=== PATIENT | male | born 1970 | race Caucasian/White ===

== ENCOUNTER 2019-10-11 08:41 | Inpatient (IN) | payer OTHER ==
[2019-10-11 09:13] VITALS: BMI 22.9
--- NOTE | 2019-10-11 09:31 | HP ---
CIWA Score Nausea/Vomitin Muscle Tremors: 3 Anxiety: 3 Agitation: 3 Paroxysmal Sweats: 1-Minimal Palms Moist Orientation: 0-Oriented Tacttile Disturbances: 1-Very Mild Itch/Numbness Auditory Disturbances: 0-None Visual Disturbances: 0-None Headache: 2-Mild CIWA-Ar Total Score: 15 - Admission Criteria OASAS Guidelines: Admission for Medically Managed Detox: Requires at least one of the followin. CIWA greater than 12 2. Seizures within the past 24 hours 3. Delirium tremens within the past 24 hours 4. Hallucinations within the past 24 hours 5. Acute intervention needed for co occurring medical disorder 6. Acute intervention needed for co occurring psychiatric disorder 7. Severe withdrawal that cannot be handled at a lower level of care (continued vomiting, continued diarrhea, abnormal vital signs) requiring intravenous medication and/or fluids 8. Admitting History and Physical - Admission Chief Complaint: i need help to stop using alcohol,drugs History of Present Illness: this 49 years old male with alcohol dependence,also cocaine,marijuana ,pcp abused and heroin abused, homeless,first time to this facility, seen in [facility] last night schizophrenia,bipolar disorder History Source: Patient - Past Medical History [employer]: Yes: Seizure Psych: Yes: Addictions, Bipolar, Depression, Schizophrenia ENT: Yes: Other (s/p trchestomy ,,fx of mandible in 2006 fx of nose in 1997) - Past Surgical History Additional Past Surgical History: fx of mandble tracheostomy - Smoking History Smoking history: Current every day smoker Have you smoked in the past 12 months: Yes Aproximately how many cigarettes per day: 20 - Alcohol/Substance Use Hx Alcohol Use: Yes History of Substance Use: reports: Cocaine, Heroin, Marijuana - Social History Usual Living Arrangement: Yes: Other (homeless) ADL: Support Services Occupation: unemployed History of Recent Travel: No Admission ROS S - HPI Chief Complaint: i need help to stop drinking alcohol,and drug Allergies/Adverse Reactions: Allergies Allergy/AdvReac Type Severity Reaction Status Date / Time No Known Allergies Allergy Verified 10/11/19 09:00 History of Present Illness: this 49 years old male with alcohol dependence,also cocaine,marijuana,pcp abused and heroin abused, first time to this facility last admission [place] [facility] last 2019 denied syncope nicotine dependence schizophrenia,bipolar disorder no significant peroid of sobriety homeless may go to rehab Exam Limitations: No Limitations - Ebola screening Have you traveled outside of the country in the last 21 days: No Have you had contact with anyone from an Ebola affected area: No Do you have a fever: No - Review of Systems Constitutional: Loss of Appetite, Malaise, Night Sweats, Changes in sleep, Weakness, Unintentional Wgt. Loss EENT: reports: Nose Congestion Respiratory: reports: No Symptoms reported, Other (s/p tracheostomy) Cardiac: reports: Palpitations GI: reports: Diarrhea, Nausea, Vomiting, Abdominal cramping : reports: No Symptoms Reported Musculoskeletal: reports: Back Pain, Muscle Pain Integumentary: reports: Dryness Neuro: reports: Headache, Tremors Endocrine: reports: No Symptoms Reported Hematology: reports: No Symptoms Reported Psychiatric: reports: No Sypmtoms Reported, Judgement Intact, Mood/Affect Appropiate, Orientated x3, other (schizophrenia,bipolar disorder) Other Systems: Reviewed and Negative Patient History - Patient Medical History Hx Anemia: No Hx Asthma: No Hx Chronic Obstructive Pulmonary Disease (COPD): No Hx Cancer: No Hx Cardiac Disorders: No Hx Congestive Heart Failure: No Hx Hypertension: No Hx Hypercholesterolemia: No Hx Pacemaker: No HX Cerebrovascular Accident: No Hx Seizures: Yes (last 2018) Hx Dementia: No Hx Diabetes: No Hx Gastrointestinal Disorders: No Hx Liver Disease: No Hx Genitourinary Disorders: No Hx Sexually Transmitted Disorders: No Hx Renal Disease (ESRD): No Hx Thyroid Disease: No Hx Human Immunodeficiency Virus (HIV): No (last 05/28 negative) Hx Hepatitis C: No Hx Depression: Yes Hx Suicide Attempt: No Hx Bipolar Disorder: Yes (on med) Hx Schizophrenia: Yes (on med) Other Medical History: no sucidal,no homicidal - Patient Surgical History Past Surgical History: Yes Other Surgical History: traheostomy in 2006,surgery for fx mandible in 2006 - PPD History Previous Implant?: Yes Documented Results: Negative w/o proof Implanted On Prior R Admission?: No PPD to be Administered?: Yes - Smoking Cessation Smoking history: Current every day smoker Have you smoked in the past 12 months: Yes Aproximately how many cigarettes per day: 20 Cigars Per Day: 0 Hx Chewing Tobacco Use: No Initiated information on smoking cessation: Yes 'Breaking Loose' booklet given: 10/11/19 - Substance & Tx. History Hx Alcohol Use: Yes Hx Substance Use: Yes Substance Use Type: Alcohol, Cocaine, Heroin Hx Substance Use Treatment: Yes (2016 [facility]) - Substances abused Alcohol Substance route: Oral Frequency: Daily Amount used: 1 liter of EJ Age of first use: 18 Date of last use: 10/10/19 Cocaine Substance route: Inhalation Frequency: 1-2 times per week Amount used: 4 grams Age of first use: 20 Date of last use: 10/10/19 PCP Substance route: Smoking Frequency: Daily Amount used: 2-3 bags Age of first use: 24 Date of last use: 10/10/19 Crack Substance route: Smoking Frequency: 1-3 times last 30 days Amount used: $700 Age of first use: 31 Date of last use: 10/10/19 Heroin Substance route: Inhalation Frequency: Daily Amount used: 2 bags Age of first use: 31 Date of last use: 10/09/19 Admission Physical Exam BHS - Vital Signs Vital Signs: Vital Signs - 24 hr 10/11/19 09:05 Temperature 98.6 F Pulse Rate 106 H Respiratory 20 Rate Blood Pressure 156/86 - Physical General Appearance: Yes: Moderate Distress, Tremorous, Irritable, Sweating HEENTM: Yes: Normal ENT Inspection, TREY, Pharynx Normal Respiratory: Yes: Lungs Clear, Normal Breath Sounds, No Respiratory Distress Neck: Yes: Within Normal Limits, Supple, Trachea in good position, Other (scar from previous trcheostomy) Breast: Yes: Within Normal Limits Cardiology: Yes: Tachycardia Abdominal: Yes: Normal Bowel Sounds, Non Tender, Flat, Soft Genitourinary: Yes: Within Normal Limits Back: Yes: Muscle Spasm Musculoskeletal: Yes: Back pain, Muscle Pain Extremities: Yes: Tremors Neurological: Yes: features reporter II-XII NML intact, Fully Oriented, Alert, Motor Strength 5/5 Integumentary: Yes: Dry Lymphatic: Yes: Within Normal Limits - Diagnostic (1) Alcohol dependence with uncomplicated withdrawal Current Visit: Yes Status: Acute (2) Cocaine abuse Current Visit: Yes Status: Acute (3) Cannabis abuse Current Visit: Yes Status: Acute (4) PCP (phencyclidine) abuse Current Visit: Yes Status: Acute (5) Heroin abuse Current Visit: Yes Status: Acute (6) Weight loss Current Visit: Yes Status: Acute (7) Alcohol related seizure Current Visit: Yes Status: Acute (8) History of tracheostomy Current Visit: Yes Status: Acute (9) History of fracture of nose Current Visit: Yes Status: Acute (10) Fracture of mandible Current Visit: Yes Status: Acute (11) Schizophrenia Current Visit: Yes Status: Acute (12) Bipolar disorder Current Visit: Yes Status: Acute Cleared for Admission S - Detox or Rehab [facility] Level of Care: Medically Managed Detox Regimen/Protocol: Valium Breathalyzer - Breathalyzer Breathalyzer: 0 Urine Drug Screen - Test Device Lot number: [id number] Expiration date: 05/09/21 - Control Is test valid?: Yes - Results Drug screen NEGATIVE: No Urine drug screen results: THC-Marijuana, TC-Cocaine Inpatient Rehab Admission - Rehab Decision to Admit Inpatient rehab admission?: No
[2019-10-11] MEDS ORDERED: IBUPROFEN 400 MG TABLET (FP) PO PRN (09:51)
[2019-10-11] MEDS ORDERED: MENTHOL/PHENOL 1 EACH UD MM PRN (09:51)
[2019-10-11] MEDS ORDERED: MAG HYDROX/AL HYDROX/SIMETH 30 ML UNIT-DOSE CUP PO PRN (09:51)
[2019-10-11] MEDS ORDERED: BISMUTH SUBSALICYLATE 262 MG/15 ML BTL PO PRN (09:51)
[2019-10-11] MEDS ORDERED: MAGNESIUM CITRATE 300 ML BOTTLE PO PRN (09:51)
[2019-10-11] MEDS ORDERED: hydrOXYzine PAMOATE 25 MG CAPSULE (FP) PO PRN (09:51)
[2019-10-11] MEDS ORDERED: ACETAMINOPHEN 325 MG TABLET (FP) PO PRN ×2 (09:51)
[2019-10-11] MEDS ORDERED: NICOTINE POLACRILEX 2 MG GUM BUC PRN (09:51)
[2019-10-11] MEDS ORDERED: MAGNESIUM HYDROX 2400MG/30ML ORAL SUSPENSION 30 ML CUP PO PRN (09:51)
[2019-10-11] MEDS: diazePAM 5 MG TABLET PO PRN (10:40)
[2019-10-11] MEDS: NICOTINE 21 MG/24 HOURS TOPICAL PATCH TD SCH (10:40)
[2019-10-11] MEDS: PRENATAL VITAMINS W/ FOLIC ACID TABLET (FP) PO SCH (10:51)
[2019-10-11] MEDS: diazePAM 5 MG TABLET PO SCH ×2 (14:37→22:14)
[2019-10-11 15:04] LABS: HEMATOCRIT 41.8 % (35.4-49); HEMOGLOBIN 13.8 GM/dL (11.7-16.9); MCH 31.2 pg (25.7-33.7); MEAN CELL VOLUME 94.8 fl (80-96); MEAN PLT VOLUME 8.4 fl (7.5-11.1); PLATELET COUNT 296 K/MM3 (134-434); RBC 4.41 M/mm3 (4.00-5.60); RDW 13.3 % (11.9-15.9); WHITE BLOOD COUNT 6.4 K/mm3 (4.0-10.0)
--- NOTE | 2019-10-11 15:15 | EKG ---
Test Reason : Blood Pressure : / mmHG Vent. Rate : 100 BPM Atrial Rate : 100 BPM P-R Int : 118 ms QRS Dur : 098 ms QT Int : 354 ms P-R-T Axes : 071 069 057 degrees QTc Int : 456 ms NORMAL SINUS RHYTHM POSSIBLE LEFT ATRIAL ENLARGEMENT BORDERLINE ECG NO PREVIOUS ECGS AVAILABLE Confirmed by DARRELL SIMEON, TAMI ([id number]) on 10/11/2019 3:15:12 PM Referred By: Confirmed By:TAMI RAMÍREZ MD
[2019-10-11 15:20] LABS: ALBUMIN 3.2 g/dl (3.4-5.0); BILIRUBIN,TOTAL 0.6 mg/dL (0.2-1); BLOOD UREA NITROGEN 8.9 mg/dL (7-18); CALCIUM 8.2 mg/dL (8.5-10.1); CREATININE 0.8 mg/dL (0.55-1.3); TOT PROT 6.1 g/dl (6.4-8.2)
[2019-10-11] MEDS: THIAMINE HCL 100 MG TABLET (FP) PO SCH (22:15)
[2019-10-12] MEDS: diazePAM 5 MG TABLET PO SCH ×3 (05:26→22:06)
[2019-10-12] MEDS: diazePAM 5 MG TABLET PO PRN (09:29)
[2019-10-12] MEDS: PRENATAL VITAMINS W/ FOLIC ACID TABLET (FP) PO SCH (09:29)
[2019-10-12] MEDS: METHOCARBAMOL 500 MG TABLET PO PRN ×2 (09:29→22:07)
[2019-10-12] MEDS: NICOTINE 21 MG/24 HOURS TOPICAL PATCH TD SCH (09:31)
--- NOTE | 2019-10-12 10:21 | PN ---
S CIWA - CIWA Score Nausea/Vomitin-No Nausea/No Vomiting Muscle Tremors: 2 Anxiety: 3 Agitation: 2 Paroxysmal Sweats: 3 Orientation: 0-Oriented Tacttile Disturbances: 0-None Auditory Disturbances: 0-None Visual Disturbances: 0-None Headache: 2-Mild CIWA-Ar Total Score: 12 S Progress Note (SOAP) Subjective: c/o headache, sweats, anxiety, and shakes. Objective: 10/12/19 10:20 Vital Signs 10/12/19 10/12/19 10/12/19 03:30 06:30 09:16 Temperature 97.6 F 97.0 F L Pulse Rate 89 92 H Respiratory 18 18 18 Rate Blood Pressure 148/82 144/80 Laboratory Last Values WBC 6.4 K/mm3 (4.0-10.0) 10/11/19 10:00 RBC 4.41 M/mm3 (4.00-5.60) 10/11/19 10:00 Hgb 13.8 GM/dL (11.7-16.9) 10/11/19 10:00 Hct 41.8 % (35.4-49) 10/11/19 10:00 MCV 94.8 fl (80-96) 10/11/19 10:00 MCH 31.2 pg (25.7-33.7) 10/11/19 10:00 MCHC 33.0 g/dl (32.0-35.9) 10/11/19 10:00 RDW 13.3 % (11.9-15.9) 10/11/19 10:00 Plt Count 296 K/MM3 (134-434) 10/11/19 10:00 MPV 8.4 fl (7.5-11.1) 10/11/19 10:00 Sodium 144 mmol/L (136-145) 10/11/19 10:00 Potassium 4.0 mmol/L (3.5-5.1) 10/11/19 10:00 Chloride 112 mmol/L (98-107) H 10/11/19 10:00 Carbon Dioxide 26 mmol/L (21-32) 10/11/19 10:00 Anion Gap 5 MMOL/L (8-16) L 10/11/19 10:00 BUN 8.9 mg/dL (7-18) 10/11/19 10:00 Creatinine 0.8 mg/dL (0.55-1.3) 10/11/19 10:00 Est GFR (CKD-EPI)AfAm 122.43 10/11/19 10:00 Est GFR (CKD-EPI)NonAf 105.63 10/11/19 10:00 Random Glucose 123 mg/dL (74-106) H 10/11/19 10:00 Calcium 8.2 mg/dL (8.5-10.1) L 10/11/19 10:00 Total Bilirubin 0.6 mg/dL (0.2-1) 10/11/19 10:00 AST 16 U/L (15-37) 10/11/19 10:00 ALT 21 U/L (13-61) 10/11/19 10:00 Alkaline Phosphatase 101 U/L (45-117) 10/11/19 10:00 Total Protein 6.1 g/dl (6.4-8.2) L 10/11/19 10:00 Albumin 3.2 g/dl (3.4-5.0) L 10/11/19 10:00 RPR Titer Nonreactive (NONREACTIVE) 10/11/19 10:00 HIV 1&2 Antibody Screen Negative 10/11/19 10:00 HIV P24 Antigen Negative 10/11/19 10:00 Labs noted. Assessment: 10/12/19 10:20 AOX3, in no acute respiratory distress. Full ROM, ambulating in the unit. Withdrawal symptoms. Plan: continue detox. increase fluids.
--- NOTE | 2019-10-12 16:05 | CONSULT ---
[facility] Psychiatric Consult - Data Date of interview: 10/12/19 Admission source: [facility] Identifying data: Psychiatric interview cannot be conducted. Patient is asleep.
[2019-10-12] MEDS: THIAMINE HCL 100 MG TABLET (FP) PO SCH (22:06)
[2019-10-12] MEDS: MELATONIN 5 MG TABLETS PO PRN (22:07)
[2019-10-13] MEDS: diazePAM 5 MG TABLET PO SCH ×2 (05:21→18:08)
--- NOTE | 2019-10-13 10:36 | CONSULT ---
[facility] Psychiatric Consult - Data Date of interview: 10/13/19 Admission source: [facility] Identifying data: First visit to [facility] and admission to [address] [place] [address] for this 49 y/o male self-referred for detoxification treatment. ALLYSON issues : alcohol, cocaine/crack, nicotine, cannabis, heroin, phencyclidine. Patient is single, father of one, homeless, unemployed and supported on SSI benefits. Substance Abuse History: Discussed with the patient. Details in current [facility] report as follows : Smoking history: Current every day smoker. Have you smoked in the past 12 months: Yes. Aproximately how many cigarettes per day: 20. Cigars Per Day: 0. Hx Chewing Tobacco Use: No. Initiated information on smoking cessation: Yes. 'Breaking Loose' booklet given: 10/11/19. - Substance & Tx. History. Hx Alcohol Use: Yes. Hx Substance Use: Yes. Substance Use Type : Alcohol, Cocaine, Heroin. Hx Substance Use Treatment: Yes (2016 [facility]). - Substances abused. Alcohol. Substance route: Oral. Frequency: Daily. Amount used: 1 liter of EJ. Age of first use: 18. Date of last use: 10/10/19. Cocaine. Substance route: Inhalation. Frequency: 1-2 times per week. Amount used: 4 grams. Age of first use: 20. Date of last use: 10/10/19. PCP. Substance route: Smoking. Frequency: Daily. Amount used: 2-3 bags. Age of first use: 24. Date of last use: 10/10/19. Crack. Substance route: Smoking. Frequency: 1-3 times last 30 days. Amount used: $700. Age of first use: 31. Date of last use: 10/10/19. Heroin. Substance route: Inhalation. Frequency: Daily. Amount used: 2 bags. Age of first use: 31. Date of last use: 10/09/19 Medical History: Medical profile is remarkable for antecedent of withdrawal- related seizures (2018), tracheostomy and history of orthosurgery in 2006 ( fracture of mandible + nasal bones). Psychiatric History: Patient endorses a history of three psychiatric hospitalizations (1996 + 2001 + 2003) at two institutions ([facility] and [facility]). Mr Venegas is currently receiving his psychiatric OPD care, under the diagnosis of schizoaffective Disorder, at the [facility] in the [place]. His maintenance medications consist of olanzapine 5 mg/hs + zolpidem 10 mg/hs + wellbutrin XL 150 mg/day. Patient reports adequate adherence to his medications. Good historian. Denies history of suicide attempts. Physical/Sexual Abuse/Trauma History: Patient denies history of abuse. Additional Comment: Urine drug screen results: THC-Marijuana, TC-Cocaine. Noted. Mental Status Exam - Mental Status Exam Alert and Oriented to: Time, Place, Person Cognitive Function: Good Patient Appearance: Unkempt, Disheveled Mood: Nervous, Withdrawn Affect: Mood Congruent, Constricted Patient Behavior: Fatigued, Appropriate, Cooperative Speech Pattern: Clear, Appropriate Voice Loudness: Normal Thought Process: Intact, Goal Oriented Thought Disorder: Not Present Hallucinations: Denies Suicidal Ideation: Denies Homicidal Ideation: Denies Insight/Judgement: Poor Sleep: Well (asleep most of the time since admission) Appetite: Good Gait/Station: Normal Psychiatric Findings - Problem List ([place] 1, 2,3) (1) Alcohol dependence with uncomplicated withdrawal Current Visit: Yes Status: Acute (2) Opioid use disorder Current Visit: Yes Status: Chronic (3) Cannabis abuse Current Visit: Yes Status: Chronic (4) Cocaine abuse Current Visit: Yes Status: Chronic (5) PCP (phencyclidine) abuse Current Visit: Yes Status: Chronic (6) Nicotine dependence Current Visit: Yes Status: Chronic (7) Substance induced mood disorder Current Visit: Yes Status: Chronic (8) History of schizoaffective disorder Current Visit: Yes Status: Chronic Comment: As per self-report. On medications. - Initial Treatment Plan Initial Treatment Plan: Psychoeducation. Sleep hygiene. Detoxification in progress. Support. MAT services described to patient. Medications resumed at patient's request : wellbutrin XL 150 mg po daily + olanzapine 5 mg po hs. Side effects/benefits of both drugs are discussed with patient. Made aware, in particular, of risk of seizures and metabolic syndrome. Patient reports good tolerability and insists on the inclusion of these molecules in current medications regimen. Medications verified via telephone contact with pharmacist at [facility] ([phone]) : refills for both drugs were filed on 09/22. Observation.
[2019-10-13] MEDS: PRENATAL VITAMINS W/ FOLIC ACID TABLET (FP) PO SCH (10:42)
[2019-10-13] MEDS: NICOTINE 21 MG/24 HOURS TOPICAL PATCH TD SCH (10:43)
--- NOTE | 2019-10-13 11:32 | PN ---
S CIWA - CIWA Score Nausea/Vomitin-No Nausea/No Vomiting Muscle Tremors: None Anxiety: 2 Agitation: 0-Normal Activity Paroxysmal Sweats: 3 Orientation: 0-Oriented Tacttile Disturbances: 0-None Auditory Disturbances: 0-None Visual Disturbances: 0-None Headache: 0-None Present CIWA-Ar Total Score: 5 BHS Progress Note (SOAP) Subjective: c/o mild withdrawal symptoms. Objective: 10/13/19 11:29 Vital Signs 10/13/19 10/13/19 10/13/19 03:30 06:14 09:11 Temperature 98.2 F 96.9 F L Pulse Rate 100 H 94 H Respiratory 18 20 16 Rate Blood Pressure 146/86 121/85 Lab Results WBC 6.4 K/mm3 (4.0-10.0) 10/11/19 10:00 RBC 4.41 M/mm3 (4.00-5.60) 10/11/19 10:00 Hgb 13.8 GM/dL (11.7-16.9) 10/11/19 10:00 Hct 41.8 % (35.4-49) 10/11/19 10:00 MCV 94.8 fl (80-96) 10/11/19 10:00 MCHC 33.0 g/dl (32.0-35.9) 10/11/19 10:00 RDW 13.3 % (11.9-15.9) 10/11/19 10:00 Plt Count 296 K/MM3 (134-434) 10/11/19 10:00 Sodium 144 mmol/L (136-145) 10/11/19 10:00 Potassium 4.0 mmol/L (3.5-5.1) 10/11/19 10:00 Chloride 112 mmol/L (98-107) H 10/11/19 10:00 Carbon Dioxide 26 mmol/L (21-32) 10/11/19 10:00 Anion Gap 5 MMOL/L (8-16) L 10/11/19 10:00 BUN 8.9 mg/dL (7-18) 10/11/19 10:00 Creatinine 0.8 mg/dL (0.55-1.3) 10/11/19 10:00 Random Glucose 123 mg/dL (74-106) H 10/11/19 10:00 Calcium 8.2 mg/dL (8.5-10.1) L 10/11/19 10:00 Labs noted. Assessment: 10/13/19 11:30 AOX3, in no acute respiratory distress. Full ROM, ambulating in the unit. Mild Withdrawal symptoms. For d/c tomorrow. Plan: D/C in AM.
[2019-10-13] MEDS ORDERED: OLANZapine 5 MG TABLET PO SCH (22:00)
[2019-10-13] MEDS: MELATONIN 5 MG TABLETS PO PRN (22:30)
[2019-10-13] MEDS: THIAMINE HCL 100 MG TABLET (FP) PO SCH (22:30)
[2019-10-13] MEDS: diazePAM 5 MG TABLET PO PRN (22:35)
[2019-10-14] MEDS ORDERED: diazePAM 5 MG TABLET PO ONE (06:00)
[2019-10-14 06:22] VITALS: BP 134/81; PULSE 91; TEMP 97.2
[2019-10-14] MEDS: PRENATAL VITAMINS W/ FOLIC ACID TABLET (FP) PO SCH (10:03)
[2019-10-14] MEDS: NICOTINE 21 MG/24 HOURS TOPICAL PATCH TD SCH (10:03)
--- NOTE | 2019-10-14 11:43 | DS ---
[facility] Detox Discharge Summary Admission Date: 10/11/19 Discharge Date: 10/14/19 - History Present History: Alcohol Dependence Additional Comments: 49 years old male admitted on 10/11/19 for alcohol withdrawal sx management treated with valium detox regimen patient completed valium regimen tolerated well alert oriented x 3 cardiac s1s2 regular rate rhythm ekg indicates possible left atrial enlargement taking zyprexa under psychiatrist monitoring psychiatric referral while in alcohol rehab respiratory clear lung bilaterally on auscultation skin warm moist emotional assurance that psychiatrist will monitor psychotropic medications - Physical Exam Results Vital Signs: Vital Signs Temperature 97.2 F L 10/14/19 06:22 Pulse Rate 91 H 10/14/19 06:22 Respiratory Rate 18 10/14/19 06:22 Blood Pressure 134/81 10/14/19 06:22 O2 Sat by Pulse Oximetry (%) Pertinent Admission Physical Exam Findings: alcohol withdrawal Laboratory Last Values WBC 6.4 K/mm3 (4.0-10.0) 10/11/19 10:00 RBC 4.41 M/mm3 (4.00-5.60) 10/11/19 10:00 Hgb 13.8 GM/dL (11.7-16.9) 10/11/19 10:00 Hct 41.8 % (35.4-49) 10/11/19 10:00 MCV 94.8 fl (80-96) 10/11/19 10:00 MCH 31.2 pg (25.7-33.7) 10/11/19 10:00 MCHC 33.0 g/dl (32.0-35.9) 10/11/19 10:00 RDW 13.3 % (11.9-15.9) 10/11/19 10:00 Plt Count 296 K/MM3 (134-434) 10/11/19 10:00 MPV 8.4 fl (7.5-11.1) 10/11/19 10:00 Sodium 144 mmol/L (136-145) 10/11/19 10:00 Potassium 4.0 mmol/L (3.5-5.1) 10/11/19 10:00 Chloride 112 mmol/L (98-107) H 10/11/19 10:00 Carbon Dioxide 26 mmol/L (21-32) 10/11/19 10:00 Anion Gap 5 MMOL/L (8-16) L 10/11/19 10:00 BUN 8.9 mg/dL (7-18) 10/11/19 10:00 Creatinine 0.8 mg/dL (0.55-1.3) 10/11/19 10:00 Est GFR (CKD-EPI)AfAm 122.43 10/11/19 10:00 Est GFR (CKD-EPI)NonAf 105.63 10/11/19 10:00 Random Glucose 123 mg/dL (74-106) H 10/11/19 10:00 Calcium 8.2 mg/dL (8.5-10.1) L 10/11/19 10:00 Total Bilirubin 0.6 mg/dL (0.2-1) 10/11/19 10:00 AST 16 U/L (15-37) 10/11/19 10:00 ALT 21 U/L (13-61) 10/11/19 10:00 Alkaline Phosphatase 101 U/L (45-117) 10/11/19 10:00 Total Protein 6.1 g/dl (6.4-8.2) L 10/11/19 10:00 Albumin 3.2 g/dl (3.4-5.0) L 10/11/19 10:00 RPR Titer Nonreactive (NONREACTIVE) 10/11/19 10:00 HIV 1&2 Antibody Screen Negative 10/11/19 10:00 HIV P24 Antigen Negative 10/11/19 10:00 lab noted - Treatment Hospital Course: Detox Protocol Followed, Detoxed Safely, Responded well, Discharged Condition Good, Rehab Referral Accepted Patient has Accepted [facility] - Medication Discharge Medications: Ambulatory Orders Bupropion HCl [Wellbutrin Sr] 150 mg PO DAILY 10/11/19 Clonazepam [Klonopin] 1 mg PO BID 10/11/19 Cyclobenzaprine HCl 10 mg PO BID PRN 10/11/19 Ibuprofen [Motrin -] 600 mg PO PRN PRN 10/11/19 Olanzapine 15 mg PO HS 10/11/19 Zolpidem Tartrate [Ambien] 10 mg PO HS 10/11/19 - Diagnosis (1) Alcohol dependence with uncomplicated withdrawal Status: Acute (2) Weight loss Status: Acute (3) Nicotine dependence Status: Acute Qualifiers: Nicotine product type: cigarettes Substance use status: in withdrawal Qualified Code(s): F17.213 - Nicotine dependence, cigarettes, with withdrawal (4) Substance induced mood disorder Status: Suspected - AMA Did Patient Leave Against Medical Advice: No CIWA Score - CIWA Score Nausea/Vomitin-No Nausea/No Vomiting Muscle Tremors: None Anxiety: 1-Mildly Anxious Agitation: 0-Normal Activity Paroxysmal Sweats: 2 Orientation: 0-Oriented Tacttile Disturbances: 0-None Auditory Disturbances: 0-None Visual Disturbances: 0-None Headache: 0-None Present CIWA-Ar Total Score: 3
== END 2019-10-14 10:05 | disposition other institution (70) | DRG 773 ==
LOC: YASAS 08:41 → Y3N 09:41
PROVIDERS: ADMIT Allergy & Immunology; ATTEND Allergy & Immunology
PROC: HZ2ZZZZ Detoxification Services for Substance Abuse Treatment (ICD-10-PCS; principal; 2019-10-11)
DX: F10.230 Alcohol dependence with withdrawal, uncomplicated (principal); F11.10 Opioid abuse, uncomplicated; F14.10 Cocaine abuse, uncomplicated; F12.10 Cannabis abuse, uncomplicated; F16.10 Hallucinogen abuse, uncomplicated; F17.213 Nicotine dependence, cigarettes, with withdrawal; F19.24 Other psychoactive substance dependence with psychoactive substance-induced mood disorder; F31.9 Bipolar disorder, unspecified; F20.9 Schizophrenia, unspecified; R63.4 Abnormal weight loss; R00.0 Tachycardia, unspecified; Z86.69 Personal history of other diseases of the nervous system and sense organs; Z59.0 Homelessness
CPT/HCPCS: 36415; 80053; 85027; 86593; 87389; 93005; 93010

== ENCOUNTER 2019-10-14 10:40 | Inpatient (IN) | payer OTHER ==
[2019-10-14 11:02] VITALS: BP 146/86; PULSE 118; TEMP 98
[2019-10-14] MEDS ORDERED: MAG HYDROX/AL HYDROX/SIMETH 30 ML UNIT-DOSE CUP PO PRN (11:36)
[2019-10-14] MEDS ORDERED: MENTHOL/PHENOL 1 EACH UD MM PRN (11:36)
[2019-10-14] MEDS ORDERED: LOPERAMIDE HCL 2 MG CAPSULE PO PRN (11:36)
[2019-10-14] MEDS ORDERED: IBUPROFEN 400 MG TABLET (FP) PO PRN (11:36)
[2019-10-14] MEDS ORDERED: MAGNESIUM CITRATE 300 ML BOTTLE PO PRN (11:36)
[2019-10-14] MEDS ORDERED: guaiFENesin 200 MG/10 ML 10 ML UNIT-DOSE CUPS PO PRN (11:36)
[2019-10-14] MEDS ORDERED: P-EPHED 60MG/TRIPROLIDI 2.5MG TABLET PO PRN (11:36)
[2019-10-14] MEDS ORDERED: NICOTINE POLACRILEX 2 MG GUM BUC PRN (11:36)
[2019-10-14] MEDS ORDERED: MAGNESIUM HYDROX 2400MG/30ML ORAL SUSPENSION 30 ML CUP PO PRN (11:36)
[2019-10-14] MEDS ORDERED: ACETAMINOPHEN 325 MG TABLET (FP) PO PRN (11:36)
--- NOTE | 2019-10-14 11:36 | HP ---
JUAN SIMEON Rehab Assess/Revision - Admission History Admitted to Rehab from: [facility] Date of Admission to Rehab: 10/14/19 - Vital signs Vital Signs: Vital Signs Period Temp Pulse Resp BP Sys/Brenner Pulse Ox Last 24 Hr 98.0 F 118 18 146/86 - Findings Detox History & Physical reviewed: Yes Concur with findings: Yes Comments/Additional Findings: tranferred from detox to rehab admission as per protocol Inpatient Rehab Admission - Rehab Decision to Admit Inpatient rehab admission?: Yes - Initial Determination Are CD services needed?: Yes Free of communicable disease: Yes Not in need of hospitalization: Yes - Rehab Admission Criteria Previous failed treatment: Yes Poor recovery environment: Yes Comorbidities: Yes Lacks judgement: Yes Patient is meeting Inpatient Rehab admission criteria:: Yes
[2019-10-14] MEDS ORDERED: hydrOXYzine PAMOATE 50 MG CAPSULE (FP) PO PRN (14:23)
--- NOTE | 2019-10-14 14:26 | CONSULT ---
[facility] Psychiatric Consult - Data Date of interview: 10/14/19 Admission source: [facility] Identifying data: Patient is a 49 y/o male, Single, father of one, unemployed, homeless, and supported by SSI Benefits. Patient admitted to for acohol, cocaine/crack, nicotine, cannabis, heroin, and phencyclidine dependence. Substance Abuse History: Substance & Tx. History. Hx Alcohol Use: Yes. Hx Substance Use: Yes. Substance Use Type: Alcohol, Cocaine, Heroin. Hx Substance Use Treatment: Yes (2016[facility]). - Substances abused. Alcohol. Substance route: Oral. Frequency: Daily. Amount used: 1 liter of EJ. Age of first use: 18. Date of last use: 10/10/19. Cocaine. Substance route: Inhalation. Frequency: 1-2 times per week. Amount used: 4 grams. Age of first use: 20. Date of last use: 10/10/19. PCP. Substance route: Smoking. Frequency: Daily. Amount used: 2-3 bags. Age of first use: 24. Date of last use: 10/10/19. Crack. Substance route: Smoking. Frequency: 1- 3 times last 30 days. Amount used: $700. Age of first use: 31. Date of last use: 10/10/19. Heroin. Substance route: Inhalation. Frequency: Daily. Amount used: 2 bags. Age of first use: 31. Date of last use: 10/09/19 Medical History: Medical profile is remarkable for antecedent of withdrawal- related seizures (2019), tracheostomy and history of orthosurgery in 2007 ( fracture of mandible + nasal bones). Psychiatric History: Patient seen by Dr. Hernandez in detox. History remains consistent. Patient reports a history of multiple psychiatric hospitalizations in the early 1999's at [facility] and [facility] secondary to auditory hallucinations. Diagnosis of Schizoaffective disorder. Mr Venegas is currently receiving his psychiatric OPD care at the [facility] and is prescribed Wellbutrin 150mg XL + Zyprexa 5mg + Ambien 10mg HS. Patient denies history of suicide attempt. As per nursing staff patient has appeared irritable on the unit but was in good control and did not appear irritable while speaking to commercial insurance underwriter. At present patient denies auditory/visual hallucinations, suicidal/homicidal ideation. Physical/Sexual Abuse/Trauma History: denies. Mental Status Exam - Mental Status Exam Alert and Oriented to: Time, Place, Person Cognitive Function: Good Patient Appearance: Well Groomed Mood: Withdrawn (In bed.) Affect: Mood Congruent Patient Behavior: Fatigued, Cooperative Speech Pattern: Clear Voice Loudness: Normal Thought Process: Goal Oriented Thought Disorder: Not Present Hallucinations: Denies Suicidal Ideation: Denies Homicidal Ideation: Denies Insight/Judgement: Poor Sleep: Fair Appetite: Fair Muscle strength/Tone: Normal Gait/Station: Other (Did not observe gait.) Psychiatric Findings - Problem List ([place] 1, 2,3) (1) Alcohol use disorder Status: Acute (2) Opioid use disorder Status: Chronic (3) PCP (phencyclidine) abuse Status: Chronic (4) Substance induced mood disorder Status: Acute (5) Schizoaffective disorder Status: Acute (6) Cannabis abuse Status: Chronic (7) Cocaine abuse Status: Chronic - Initial Treatment Plan Initial Treatment Plan: Psychoeducation provided. Rehab in progress. Will continue Wellbutrin 150mg daily + Zyprexa 5mg HS. Will order Vistaril 50mg Q4H for irritability. Benefits and side effects discussed. Verbal consent given.
--- NOTE | 2019-10-14 16:48 | PN ---
[facility] Progress Note Note: patient did not want to complete treatment state he feel much better,would would like to go back to alf,, all attempts to convince patient to stay with no avail,high risk of relapsing explained,nd understood,patient seen by counselor, signed release ama,no suicidal,no homicidal,left the unit in good and stable, condition
--- NOTE | 2019-10-14 16:58 | DS ---
[facility] Rehab Discharge Summary - [facility] Rehab Discharge Summary Admission Date: 10/14/19 Discharge Date: 10/14/19 - History Present History: Alcohol dependence, Cannabis dependence, PCP dependence Pertinent Past History: bipolar disorder - Discharge Physical Exam Vital Signs: Vital Signs Temperature 98.0 F 10/14/19 11:01 Pulse Rate 118 H 10/14/19 11:01 Respiratory Rate 18 10/14/19 11:01 Blood Pressure 146/86 10/14/19 11:01 O2 Sat by Pulse Oximetry (%) - Treatment Discharge Condition: Discharge condition good Hospital Course: patient did not want to complete treatment,signed release ama,high risk of relapsing explained,patient understood,all attempts to convince patient to stay with no avail,patient signed release ama,left the unit in stable condition, stated he will see his psychiatric for medications, seen by counselor,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,advise to call 911 if not feeling well - Medication Discharge Medications: Ambulatory Orders Bupropion HCl [Wellbutrin Sr] 150 mg PO DAILY 10/11/19 Clonazepam [Klonopin] 1 mg PO BID 10/11/19 Cyclobenzaprine HCl 10 mg PO BID PRN 10/11/19 Ibuprofen [Motrin -] 600 mg PO PRN PRN 10/11/19 Olanzapine 15 mg PO HS 10/11/19 Zolpidem Tartrate [Ambien] 10 mg PO HS 10/11/19 - Discharge Instructions Diet, activity, other medical instructions: Diet: Activity: Other medical instructions: - Diagnosis (1) Alcohol use disorder Current Visit: Yes Status: Acute (2) Cannabis abuse Current Visit: Yes Status: Chronic (3) Cocaine abuse Current Visit: Yes Status: Chronic (4) Opioid use disorder Current Visit: Yes Status: Chronic (5) PCP (phencyclidine) abuse Current Visit: Yes Status: Chronic (6) History of tracheostomy Current Visit: No Status: Acute (7) Nicotine dependence Current Visit: No Status: Acute Qualifiers: Nicotine product type: cigarettes Substance use status: in withdrawal Qualified Code(s): F17.213 - Nicotine dependence, cigarettes, with withdrawal (8) History of schizoaffective disorder Current Visit: No Status: Chronic - AMA Did Patient Leave Against Medical Advice: Yes
[2019-10-14] MEDS ORDERED: OLANZapine 5 MG TABLET PO SCH (22:00)
[2019-10-14] MEDS ORDERED: THIAMINE HCL 100 MG TABLET (FP) PO SCH (22:00)
[2019-10-14] MEDS ORDERED: MELATONIN 5 MG TABLETS PO PRN (22:00)
[2019-10-15] MEDS ORDERED: PRENATAL VITAMINS W/ FOLIC ACID TABLET (FP) PO SCH (10:00)
[2019-10-15] MEDS ORDERED: NICOTINE 21 MG/24 HOURS TOPICAL PATCH TD SCH (10:00)
== END 2019-10-14 17:10 | disposition left against medical advice (07) | DRG 770 ==
LOC: YASAS 10:40 → Y3W 10:42
PROVIDERS: ADMIT Neuromusculoskeletal Medicine & OMM; ATTEND Neuromusculoskeletal Medicine & OMM
PROC: HZ42ZZZ Group Counseling for Substance Abuse Treatment, Cognitive-Behavioral (ICD-10-PCS; principal; 2019-10-14)
DX: F10.20 Alcohol dependence, uncomplicated (principal); F11.10 Opioid abuse, uncomplicated; F14.10 Cocaine abuse, uncomplicated; F16.10 Hallucinogen abuse, uncomplicated; F12.10 Cannabis abuse, uncomplicated; F17.213 Nicotine dependence, cigarettes, with withdrawal; F19.24 Other psychoactive substance dependence with psychoactive substance-induced mood disorder; F31.9 Bipolar disorder, unspecified; F20.9 Schizophrenia, unspecified; R63.4 Abnormal weight loss; R00.0 Tachycardia, unspecified; Z86.69 Personal history of other diseases of the nervous system and sense organs; Z59.0 Homelessness

== ENCOUNTER 2019-11-20 16:13 | Inpatient (IN) | payer OTHER ==
[2019-11-20 18:21] VITALS: BMI 22.8
--- NOTE | 2019-11-20 21:30 | HP ---
CIWA Score Nausea/Vomitin-No Nausea/No Vomiting Muscle Tremors: 2 Anxiety: 4-Mod. Anxious/Guarded Agitation: 1-Slight > Activity Paroxysmal Sweats: 3 (Increased facial moisture) Orientation: 0-Oriented Tacttile Disturbances: 0-None Auditory Disturbances: 0-None Visual Disturbances: 0-None Headache: 0-None Present CIWA-Ar Total Score: 10 - Admission Criteria OASAS Guidelines: Admission for Medically Managed Detox: Requires at least one of the followin. CIWA greater than 12 2. Seizures within the past 24 hours 3. Delirium tremens within the past 24 hours 4. Hallucinations within the past 24 hours 5. Acute intervention needed for co occurring medical disorder 6. Acute intervention needed for co occurring psychiatric disorder 7. Severe withdrawal that cannot be handled at a lower level of care (continued vomiting, continued diarrhea, abnormal vital signs) requiring intravenous medication and/or fluids 8. Patient presents the following: Acute intervention needed for co-occurring med or psych disorder (Patient w/ schizophrenia) Admission Criteria Met: Admission criteria met Admitting History and Physical - Past Medical History CHAPLAINCY: Yes: Seizure Psych: Yes: Addictions, Bipolar, Depression, Schizophrenia ENT: Yes: Other (s/p trchestomy ,,fx of mandible in 2006 fx of nose in 1997) - Smoking History Smoking history: Current every day smoker Have you smoked in the past 12 months: Yes Aproximately how many cigarettes per day: 20 - Alcohol/Substance Use Hx Alcohol Use: Yes History of Substance Use: reports: Cocaine, Heroin, Marijuana - Social History ADL: Support Services Occupation: unemployed History of Recent Travel: No Admission ROS [facility] Chief Complaint: I'm here for detox. I want to stop drinking" Allergies/Adverse Reactions: Allergies Allergy/AdvReac Type Severity Reaction Status Date / Time No Known Allergies Allergy Verified 10/11/19 09:00 History of Present Illness: 49 yo presents w/ alcohol withdrawal seeking detox. Patient does not remember he was here in October 2019. Part of patient's hx does not coincide w/ last admission. Physical assessment is the same (i.e. old trache opening) Denies seizures, blackouts, overdoses. UTox: + THC/TC FROYLAN: 0.0 Alcohol use began at age 20. Currently drinks 2 -6 packs 22 oz beers daily. Last drink about 5 a.m. today. Marijuana use began at age 18. Currently uses $5 bag/day. Cocaine use began at age 26. Sniffs 1 gm daily, last used 2 days ago. PCP use began at age 26. States uses 1 bag/day. Denies nicotine use. Denies opiate use. PMHx: Chronic low back pain. 10/11/2019 EKG reviewed. 10/11/2019 RPR reviewed. MHHx: Schizophrenia. Zyprexa 5 mg Po daily and Wellbutrin Po daily - states compliant w/ meds. . Kojo hallucinations when non compliant w/ meds. Denies thoughts of harming self or others. SHx: Retirement. Unemployed. Denies legal issues. Patient Name: Benitez Venegas Date: 1970 Address: [address] [place] [address] Sex: Male Rx Written Rx Dispensed Drug Quantity Days Supply Prescriber Name 10/26/2019 10/26/2019 endocet 10-325 mg tablet 90 30 Deanne Pugh 10/22/2019 10/22/2019 zolpidem tartrate 10 mg tablet 30 30 Vik Lozano NP 09/26/2019 09/26/2019 endocet 10-325 mg tablet 90 30 Ramu Beach K 08/15/2019 09/18/2019 zolpidem tartrate 10 mg tablet 30 30 Sam Manzanares 08/27/2019 08/27/2019 endocet 10-325 mg tablet 90 30 Eugene Salas MD 08/23/2019 08/23/2019 acetaminophen-cod #3 tablet 20 7 Jaime England 08/15/2019 08/22/2019 zolpidem tartrate 10 mg tablet 30 30 Sam Manzanares 07/27/2019 07/27/2019 endocet 10-325 mg tablet 90 30 Eugene Salas MD 06/20/2019 07/24/2019 zolpidem tartrate 10 mg tablet 30 30 Sam Manzanares 06/28/2019 06/28/2019 endocet 10-325 mg tablet 75 30 Michael Fair 06/20/2019 06/23/2019 zolpidem tartrate 10 mg tablet 30 30 Sam Manzanares 04/23/2019 05/28/2019 zolpidem tartrate 10 mg tablet 30 30 Robert Linares 05/28/2019 05/28/2019 endocet 10-325 mg tablet 90 30 Mosheyev, Michael 04/27/2019 04/27/2019 endocet 10-325 mg tablet 90 30 Amando Stanford () 04/23/2019 04/24/2019 zolpidem tartrate 10 mg tablet 30 30 Cornell Linareseda 03/28/2019 03/28/2019 endocet 10-325 mg tablet 90 30 Eugene Salas MD 02/23/2019 03/26/2019 zolpidem tartrate 10 mg tablet 30 30 Kwapong, Jack 02/23/2019 02/24/2019 zolpidem tartrate 10 mg tablet 30 30 Kwapong, Jack 02/22/2019 02/22/2019 endocet 10-325 mg tablet 90 30 Manjula, Michael Patient Name: Benitez Venegas Date: 1970 Address: [address] [place] [address] Sex: Male Rx Written Rx Dispensed Drug Quantity Days Supply Prescriber Name 12/27/2018 01/22/2019 zolpidem tartrate 10 mg tablet 30 30 Manzanares, Benefita 01/22/2019 01/22/2019 endocet 10-325 mg tablet 90 30 Jean Pierre Brandon, P 12/27/2018 01/01/2019 zolpidem tartrate 10 mg tablet 30 30 Manzanares, Benefita 12/22/2018 12/22/2018 endocet 10-325 mg tablet 90 30 Tonya Brain T (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 Chews aand swallows ok.) Respiratory: reports: No Symptoms reported Cardiac: reports: No Symptoms Reported GI: reports: No Symptoms Reported : reports: No Symptoms Reported Musculoskeletal: reports: Back Pain (Chronic sharp low back pain. "0". Pain triggered by walking, stair climbing.), Joint Stiffness ((R) middle finger paralyzed r/t tendon injury) Integumentary: reports: No Symptoms Reported Neuro: reports: Tremors Endocrine: reports: Increased Thirst Hematology: reports: No Symptoms Reported Psychiatric: reports: Judgement Intact, Orientated x3, Anxious Patient History - Patient Medical History Hx Anemia: No Hx Asthma: No Hx Chronic Obstructive Pulmonary Disease (COPD): No Hx Cancer: No Hx Cardiac Disorders: No Hx Congestive Heart Failure: No Hx Hypertension: No Hx Hypercholesterolemia: No Hx Pacemaker: No HX Cerebrovascular Accident: No Hx Seizures: Yes (seizure r/t alcohol last episode last year) Hx Dementia: No Hx Diabetes: No Hx Gastrointestinal Disorders: No Hx Liver Disease: No Hx Genitourinary Disorders: No Hx Sexually Transmitted Disorders: No Hx Renal Disease (ESRD): No Hx Thyroid Disease: No Hx Human Immunodeficiency Virus (HIV): No (last 05/28 negative) Hx Hepatitis C: No Hx Depression: Yes Hx Suicide Attempt: No Hx Bipolar Disorder: Yes (on med) Hx Schizophrenia: Yes - Patient Surgical History Past Surgical History: Yes Hx Orthopedic Surgery: Yes (Fx L mandible) Other Surgical History: traheostomy in 2006,surgery for fx mandible in 2006 - PPD History Previous Implant?: Yes Documented Results: Negative w/proof Implanted On Prior [facility] Admission?: Yes Date: 10/13/19 Results: 0 mm PPD to be Administered?: No - Smoking Cessation Smoking history: Unknown if ever smoked Aproximately how many cigarettes per day: 20 Cigars Per Day: 0 - Substance & Tx. History Hx Alcohol Use: Yes Hx Substance Use: Yes Substance Use Type: Alcohol, Cocaine Hx Substance Use Treatment: Yes (Does not remember being in this facility for detox) - Substances abused Alcohol Substance route: Oral Frequency: Daily Amount used: 6 packs Age of first use: 18 Date of last use: 11/20/19 Cocaine Substance route: Inhalation Frequency: 3-6 times per week Amount used: 10 dollars Age of first use: 21 Date of last use: 11/19/19 PCP Substance route: Smoking Frequency: Daily Amount used: 1 bag Age of first use: 21 Date of last use: 11/19/19 Admission Physical Exam [facility] - Vital Signs Vital Signs: Vital Signs - 24 hr 11/20/19 11/20/19 18:14 19:49 Temperature 99.2 F 99.2 F Pulse Rate 104 H 104 H Respiratory 18 18 Rate Blood Pressure 144/85 144/85 - Physical General Appearance: Yes: Nourished, Mild Distress, Tremorous (tremors felt, not seen), Sweating (Increased facial moisture), Anxious HEENTM: Yes: EOMI (Jerking movement of eyes upon lateral gaze), Hearing grossly Normal, Normocephalic, Normal Voice, TREY, Pharynx Normal Respiratory: Yes: Lungs Clear (Pulse Ox = 98 %), Normal Breath Sounds, No Respiratory Distress Neck: Yes: No masses,lesions,Nodules, Supple, Other (Old trache scar) Breast: Yes: Breast Exam Deferred Cardiology: Yes: Regular Rhythm, Regular Rate, S1, S2 Abdominal: Yes: Non Tender, Flat, Soft, Increased Bowel Sounds Genitourinary: Yes: Within Normal Limits Back: Yes: Normal Inspection Musculoskeletal: Yes: full range of Motion (FROM except for middle finger (R) hand extended aand w/o movement), Gait Steady Extremities: Yes: Normal Capillary Refill Neurological: Yes: assistant superintendent II-XII NML intact (Jerking movement of eyes upon lateral gaze), Fully Oriented, Alert, Motor Strength 5/5, Normal Mood/Affect (Stares) Integumentary: Yes: Normal Color, Warm, Moist (Increased facial moisture) Lymphatic: Yes: Within Normal Limits - Diagnostic (1) Cannabis dependence, uncomplicated Current Visit: Yes Status: Chronic (2) Cocaine dependence, uncomplicated Current Visit: Yes Status: Chronic (3) Unspecified nystagmus Current Visit: Yes Status: Acute (4) Alcohol dependence with uncomplicated withdrawal Current Visit: Yes Status: Acute Cleared for Admission [facility] - Detox or Rehab [facility] Level of Care: Medically Managed Detox Regimen/Protocol: Librium Mary Loued for Rehab Admission: No Breathalyzer - Breathalyzer Breathalyzer: 0 Urine Drug Screen - Test Device Lot number: [id number] Expiration date: 09/03/21 - Control Is test valid?: Yes - Results Drug screen NEGATIVE: No Urine drug screen results: THC-Marijuana, TC-Cocaine Inpatient Rehab Admission - Rehab Decision to Admit Inpatient rehab admission?: No
[2019-11-20] MEDS ORDERED: ACETAMINOPHEN 325 MG TABLET (FP) PO PRN ×2 (22:07)
[2019-11-20] MEDS ORDERED: BISMUTH SUBSALICYLATE 524 MG/30 ML UD PO PRN (22:07)
[2019-11-20] MEDS ORDERED: MAG HYDROX/AL HYDROX/SIMETH 30 ML UNIT-DOSE CUP PO PRN (22:07)
[2019-11-20] MEDS ORDERED: MAGNESIUM HYDROX 2400MG/30ML ORAL SUSPENSION 30 ML CUP PO PRN (22:07)
[2019-11-20] MEDS ORDERED: MENTHOL/PHENOL 1 EACH UD MM PRN (22:07)
[2019-11-20] MEDS ORDERED: MAGNESIUM CITRATE 300 ML BOTTLE PO PRN (22:07)
[2019-11-20] MEDS ORDERED: IBUPROFEN 400 MG TABLET (FP) PO PRN (22:07)
[2019-11-20] MEDS ORDERED: METHOCARBAMOL 500 MG TABLET PO PRN (22:07)
[2019-11-20] MEDS ORDERED: chlordiazePOXIDE HCL 25 MG CAPSULE PO ONE (23:00)
[2019-11-20] MEDS: MELATONIN 5 MG TABLETS PO PRN (23:04)
[2019-11-21] MEDS ORDERED: chlordiazePOXIDE HCL 10 MG CAPSULE PO PRN (00:01)
[2019-11-21] MEDS: chlordiazePOXIDE HCL 25 MG CAPSULE PO SCH ×3 (07:44→21:54)
--- NOTE | 2019-11-21 09:09 | CONSULT ---
[facility] Psychiatric Consult - Data Date of interview: 11/21/19 Admission source: Self-referred Identifying data: Mr Venegas is a 49 years old single male, father of a 25 years old son, unemployed receiving SSI, homeless seeking treatment for alcohol, cocaine cannabis and phencyclidine Substance Abuse History: Reports history of alcohol, cocaine, marijuana and pcp use. Refer to addiction counselor's summary for further information Medical History: Significant for history of withdrawal-related seizures (2019) and surgery for fracture of mandible in 2006 and nasal bones in 1997. Smokes cigarettes 1 ppd Psychiatric History: Patient is known for two previous admissions to this facility. Historical narrative remains quite consistent. Reports that his first psychiatric contact occured in 1996 when he was admitted to [facility], diagnosed with Schizoaffective Disorder and started on psychotropic medications. Reports two subsequent psychiatric hospitalizations both at [facility] in 2001 & 2003. Reports that he currently sees a staff psychiatrist at [facility] in the [place] and he is prescribed Zyprexa 5 mg/ hs and Wellbutrin XL 150 mg/day. Denies previous suicidal attempt. At present, denies experiencing psychotic, manic or depressive symptoms, S/H ideations. endorses a history of three psychiatric hospitalizations (1996 + 2001 + 2003) at two institutions ([facility] and [facility]). Mr Venegas is currently receiving his psychiatric OPD care, under the diagnosis of schizoaffective Disorder, at the [facility] in the [place]. His maintenance medications consist of olanzapine 5 mg/hs + zolpidem 10 mg/hs + wellbutrin XL 150 mg/day. Patient reports adequate adherence to his medications. Good historian. Denies history of suicide attempts. Physical/Sexual Abuse/Trauma History: Denies history of abuse as a child or DV relationship as an adult Mental Status Exam - Mental Status Exam Alert and Oriented to: Time, Place, Person Cognitive Function: Fair Patient Appearance: Disheveled Mood: Euthymic Affect: Blunted Patient Behavior: Cooperative Speech Pattern: Clear Voice Loudness: Normal Thought Process: Intact, Goal Oriented Thought Disorder: Not Present Hallucinations: Denies Suicidal Ideation: Denies Homicidal Ideation: Denies Insight/Judgement: Poor Sleep: Well Appetite: Good Muscle strength/Tone: Normal Gait/Station: Normal Psychiatric Findings - Problem List ([place] 1, 2,3) (1) Schizoaffective disorder Current Visit: No Status: Chronic (2) Alcohol dependence with uncomplicated withdrawal Current Visit: Yes Status: Acute (3) Cocaine dependence, uncomplicated Current Visit: Yes Status: Acute (4) Cannabis dependence, uncomplicated Current Visit: Yes Status: Chronic (5) PCP (phencyclidine) abuse Current Visit: No Status: Acute (6) Nicotine dependence Current Visit: No Status: Chronic Qualifiers: Nicotine product type: cigarettes Substance use status: in withdrawal Qualified Code(s): F17.213 - Nicotine dependence, cigarettes, with withdrawal (7) Alcohol related seizure Current Visit: No Status: Resolved (8) Fracture of mandible Current Visit: No Status: Resolved (9) History of fracture of nose Current Visit: No Status: Resolved - Initial Treatment Plan Initial Treatment Plan: 1) Continue Wellburtrin XL 150 mg po daily and Zyprexa 5 mg po HS. 2) Continue inpatient detoxification
[2019-11-21] MEDS: PRENATAL VITAMINS W/ FOLIC ACID TABLET (FP) PO SCH (10:17)
--- NOTE | 2019-11-21 10:22 | PN ---
S CIWA - CIWA Score Nausea/Vomitin-No Nausea/No Vomiting Muscle Tremors: 3 Anxiety: 2 Agitation: 2 Paroxysmal Sweats: 2 Orientation: 0-Oriented Tacttile Disturbances: 0-None Auditory Disturbances: 0-None Visual Disturbances: 0-None Headache: 0-None Present CIWA-Ar Total Score: 9 BHS Progress Note (SOAP) Subjective: shakes sweats irritable interrupted sleep Objective: 11/21/19 10:19 Vital Signs Temperature 97.9 F 11/21/19 07:00 Pulse Rate 85 11/21/19 07:00 Respiratory Rate 18 11/21/19 07:00 Blood Pressure 143/73 11/21/19 07:00 O2 Sat by Pulse Oximetry (%) labs pending aaox3 ambulating no acute distress Assessment: 11/21/19 10:21 withdrawals Plan: continue detox
[2019-11-21 10:28] LABS: HEMATOCRIT 46.4 % (35.4-49); HEMOGLOBIN 15.1 GM/dL (11.7-16.9); MCH 31.4 pg (25.7-33.7); MCHC 32.6 g/dl (32.0-35.9); MEAN CELL VOLUME 96.3 fl (80-96); MEAN PLT VOLUME 8.7 fl (7.5-11.1); PLATELET COUNT 266 K/MM3 (134-434); RBC 4.82 M/mm3 (4.00-5.60); RDW 13.3 % (11.9-15.9); WHITE BLOOD COUNT 9.5 K/mm3 (4.0-10.0)
[2019-11-21 10:47] LABS: ALBUMIN 3.3 g/dl (3.4-5.0); BILIRUBIN,TOTAL 0.5 mg/dL (0.2-1); BLOOD UREA NITROGEN 9.4 mg/dL (7-18); CALCIUM 9.2 mg/dL (8.5-10.1); CREATININE 0.7 mg/dL (0.55-1.3); POTASSIUM 4.2 mmol/L (3.5-5.1); TOT PROT 6.3 g/dl (6.4-8.2)
[2019-11-21] MEDS: MELATONIN 5 MG TABLETS PO PRN (22:14)
[2019-11-21] MEDS: OLANZapine 5 MG TABLET PO SCH (22:14)
[2019-11-21] MEDS: THIAMINE HCL 100 MG TABLET (FP) PO SCH (22:14)
[2019-11-22] MEDS ORDERED: chlordiazePOXIDE HCL 10 MG CAPSULE PO PRN
[2019-11-22] MEDS: chlordiazePOXIDE 5 MG CAPSULE PO SCH ×3 (05:58→21:11)
[2019-11-22] MEDS: PRENATAL VITAMINS W/ FOLIC ACID TABLET (FP) PO SCH (14:03)
--- NOTE | 2019-11-22 15:20 | PN ---
S CIWA - CIWA Score Nausea/Vomitin Muscle Tremors: 2 Anxiety: 2 Agitation: 2 Paroxysmal Sweats: No Perspiration Orientation: 0-Oriented Tacttile Disturbances: 1-Very Mild Itch/Numbness Auditory Disturbances: 0-None Visual Disturbances: 0-None Headache: 1-Very Mild CIWA-Ar Total Score: 10 S Progress Note (SOAP) Subjective: alert,irritable,anxious,interrupted sleep,tremor Objective: 11/22/19 15:19 Vital Signs Temperature 98.1 F 11/22/19 13:47 Pulse Rate 108 H 11/22/19 13:47 Respiratory Rate 19 11/22/19 13:47 Blood Pressure 138/83 11/22/19 13:47 O2 Sat by Pulse Oximetry (%) 11/22/19 15:19 Laboratory Last Values WBC 9.5 K/mm3 (4.0-10.0) 11/21/19 07:45 RBC 4.82 M/mm3 (4.00-5.60) 11/21/19 07:45 Hgb 15.1 GM/dL (11.7-16.9) 11/21/19 07:45 Hct 46.4 % (35.4-49) 11/21/19 07:45 MCV 96.3 fl (80-96) H 11/21/19 07:45 MCH 31.4 pg (25.7-33.7) 11/21/19 07:45 MCHC 32.6 g/dl (32.0-35.9) 11/21/19 07:45 RDW 13.3 % (11.9-15.9) 11/21/19 07:45 Plt Count 266 K/MM3 (134-434) 11/21/19 07:45 MPV 8.7 fl (7.5-11.1) 11/21/19 07:45 Sodium 144 mmol/L (136-145) 11/21/19 07:45 Potassium 4.2 mmol/L (3.5-5.1) 11/21/19 07:45 Chloride 108 mmol/L (98-107) H 11/21/19 07:45 Carbon Dioxide 31 mmol/L (21-32) 11/21/19 07:45 Anion Gap 6 MMOL/L (8-16) L 11/21/19 07:45 BUN 9.4 mg/dL (7-18) 11/21/19 07:45 Creatinine 0.7 mg/dL (0.55-1.3) 11/21/19 07:45 Est GFR (CKD-EPI)AfAm 129.34 11/21/19 07:45 Est GFR (CKD-EPI)NonAf 111.59 11/21/19 07:45 Random Glucose 98 mg/dL (74-106) 11/21/19 07:45 Calcium 9.2 mg/dL (8.5-10.1) 11/21/19 07:45 Total Bilirubin 0.5 mg/dL (0.2-1) 11/21/19 07:45 AST 12 U/L (15-37) L 11/21/19 07:45 ALT 19 U/L (13-61) 11/21/19 07:45 Alkaline Phosphatase 122 U/L (45-117) H 11/21/19 07:45 Total Protein 6.3 g/dl (6.4-8.2) L 11/21/19 07:45 Albumin 3.3 g/dl (3.4-5.0) L 11/21/19 07:45 Assessment: 11/22/19 15:19 withdrawal symptom Plan: continue detox librium regimen
[2019-11-22] MEDS: THIAMINE HCL 100 MG TABLET (FP) PO SCH (21:11)
[2019-11-22] MEDS: MELATONIN 5 MG TABLETS PO PRN (21:11)
[2019-11-22] MEDS: OLANZapine 5 MG TABLET PO SCH (21:11)
[2019-11-23] MEDS: chlordiazePOXIDE HCL 10 MG CAPSULE PO SCH ×3 (06:06→22:15)
[2019-11-23] MEDS: PRENATAL VITAMINS W/ FOLIC ACID TABLET (FP) PO SCH (11:19)
--- NOTE | 2019-11-23 12:49 | PN ---
S CIWA - CIWA Score Nausea/Vomitin-No Nausea/No Vomiting Muscle Tremors: 1-None Visible, but [place] Anxiety: 1-Mildly Anxious Agitation: 1-Slight > Activity Paroxysmal Sweats: No Perspiration Orientation: 0-Oriented Tacttile Disturbances: 0-None Auditory Disturbances: 0-None Visual Disturbances: 0-None Headache: 1-Very Mild CIWA-Ar Total Score: 4 BHS Progress Note (SOAP) Subjective: pt completing AUD O: Vital Signs - 24 hr 11/22/19 11/22/19 11/22/19 13:47 16:50 20:45 Temperature 98.1 F 98.1 F 98.1 F Pulse Rate 108 H 96 H 108 H Respiratory 19 18 16 Rate Blood Pressure 138/83 118/80 134/78 11/23/19 11/23/19 11/23/19 00:27 03:52 07:28 Temperature 96.6 F L Pulse Rate 79 Respiratory 18 18 18 Rate Blood Pressure 134/69 11/23/19 09:05 Temperature 97.7 F Pulse Rate 110 H Respiratory 20 Rate Blood Pressure 127/71 Laboratory Tests 11/21/19 11/21/19 07:45 07:45 WBC 9.5 RBC 4.82 Hgb 15.1 Hct 46.4 MCV 96.3 H MCH 31.4 MCHC 32.6 RDW 13.3 Plt Count 266 MPV 8.7 Sodium 144 Potassium 4.2 Chloride 108 H Carbon Dioxide 31 Anion Gap 6 L BUN 9.4 Creatinine 0.7 Est GFR (CKD-EPI)AfAm 129.34 Est GFR (CKD-EPI)NonAf 111.59 Random Glucose 98 Calcium 9.2 Total Bilirubin 0.5 AST 12 L ALT 19 Alkaline Phosphatase 122 H Total Protein 6.3 L Albumin 3.3 L a/p AUD- continue detox protocol, anticipate d/c tomorrow.
[2019-11-23] MEDS: THIAMINE HCL 100 MG TABLET (FP) PO SCH (22:15)
[2019-11-23] MEDS: OLANZapine 5 MG TABLET PO SCH (22:15)
[2019-11-23] MEDS: MELATONIN 5 MG TABLETS PO PRN (22:15)
[2019-11-24] MEDS ORDERED: chlordiazePOXIDE HCL 10 MG CAPSULE PO ONE (05:00)
[2019-11-24 10:03] VITALS: BP 152/81; PULSE 101; TEMP 97.5
[2019-11-24] MEDS: PRENATAL VITAMINS W/ FOLIC ACID TABLET (FP) PO SCH (10:35)
--- NOTE | 2019-11-24 11:32 | DS ---
[facility] Detox Discharge Summary Admission Date: 11/20/19 Discharge Date: 11/24/19 - History Present History: Alcohol Dependence Pertinent Past History: Pt admitted for alcohol detox. Pt completed detox without problems. Pt will go back to snf. And f/o outpt addiction programs - Physical Exam Results Vital Signs: Vital Signs Temperature 97.5 F L 11/24/19 10:02 Pulse Rate 101 H 11/24/19 10:02 Respiratory Rate 18 11/24/19 10:02 Blood Pressure 152/81 11/24/19 10:02 O2 Sat by Pulse Oximetry (%) - Treatment Hospital Course: Detox Protocol Followed, Detoxed Safely, Responded well, Discharged Condition Good - Medication Discharge Medications: Ambulatory Orders Bupropion HCl [Wellbutrin Sr] 150 mg PO DAILY 10/11/19 Olanzapine 15 mg PO HS 10/11/19 Zolpidem Tartrate [Ambien] 10 mg PO HS 10/11/19 - AMA Did Patient Leave Against Medical Advice: No
== END 2019-11-24 12:58 | disposition home or self-care (01) | DRG 774 ==
LOC: YASAS 16:13 → Y6N 22:26
PROVIDERS: ADMIT Allergy & Immunology; ATTEND Allergy & Immunology
PROC: HZ2ZZZZ Detoxification Services for Substance Abuse Treatment (ICD-10-PCS; principal; 2019-11-20)
DX: F10.230 Alcohol dependence with withdrawal, uncomplicated (principal); F14.20 Cocaine dependence, uncomplicated; F16.20 Hallucinogen dependence, uncomplicated; F12.20 Cannabis dependence, uncomplicated; F17.210 Nicotine dependence, cigarettes, uncomplicated; F25.9 Schizoaffective disorder, unspecified; F31.9 Bipolar disorder, unspecified; H55.00 Unspecified nystagmus; M54.5 Low back pain; G89.29 Other chronic pain; Z86.69 Personal history of other diseases of the nervous system and sense organs; Z87.81 Personal history of (healed) traumatic fracture; Z59.0 Homelessness
CPT/HCPCS: 36415; 80053; 85027

== ENCOUNTER 2021-09-04 18:14 | Inpatient (IN) | payer OTHER ==
[2021-09-04 20:12] VITALS: BMI 21.2
[2021-09-04] MEDS ORDERED: MAGNESIUM CITRATE 300 ML BOTTLE PO PRN (22:02)
[2021-09-04] MEDS ORDERED: MAG HYDROX/AL HYDROX/SIMETH 30 ML UNIT-DOSE CUP PO PRN (22:02)
[2021-09-04] MEDS ORDERED: MENTHOL/PHENOL 1 EACH UD MM PRN (22:02)
[2021-09-04] MEDS ORDERED: MAGNESIUM HYDROX 2400MG/30ML ORAL SUSPENSION 30 ML CUP PO PRN (22:02)
[2021-09-04] MEDS ORDERED: ACETAMINOPHEN 325 MG TABLET (FP) PO PRN ×2 (22:02)
[2021-09-04] MEDS ORDERED: ONDANSETRON *ODT* 4 MG TABLET SL PRN (22:02)
[2021-09-04] MEDS ORDERED: BISMUTH SUBSALICYLATE 524 MG/30 ML PO PRN (22:02)
[2021-09-04] MEDS ORDERED: NICOTINE 10 MG CARTRIDGE (INHALER) IH PRN (22:02)
[2021-09-04] MEDS ORDERED: LORazepam 1 MG TABLET PO PRN (22:12)
[2021-09-04] MEDS ORDERED: MELATONIN 5 MG TABLETS PO PRN (22:14)
[2021-09-04] MEDS: LORazepam 2 MG TABLET PO SCH (23:40)
[2021-09-04] MEDS: hydrOXYzine PAMOATE 25 MG CAPSULE (FP) PO PRN (23:43)
[2021-09-04] MEDS: CEPHALEXIN MONOHYDRATE 500 MG CAPSULE (UD) PO SCH (23:44)
[2021-09-04] MEDS: IBUPROFEN 400 MG TABLET (FP) PO PRN (23:44)
[2021-09-05] MEDS: LORazepam 2 MG TABLET PO SCH ×4 (05:52→22:34)
[2021-09-05] MEDS: CEPHALEXIN MONOHYDRATE 500 MG CAPSULE (UD) PO SCH ×3 (05:52→17:50)
[2021-09-05] MEDS: hydrOXYzine PAMOATE 25 MG CAPSULE (FP) PO PRN ×2 (11:19→17:50)
[2021-09-05] MEDS: PRENATAL VITAMINS W/ FOLIC ACID TABLET (FP) PO SCH (11:19)
[2021-09-05] MEDS: BACITRACIN 0.9 GM PACKET TP SCH ×2 (11:46→22:37)
[2021-09-05] MEDS ORDERED: FLU VACC QS2021-22(6MOS UP)/PF 60 MCG/0.5 ML SYRINGE IM ONE (13:00)
[2021-09-05] MEDS ORDERED: MELATONIN 5 MG TABLETS PO SCH (22:00)
[2021-09-05] MEDS: OLANZapine 5 MG TABLET PO SCH (22:34)
[2021-09-05] MEDS: THIAMINE HCL 100 MG TABLET (FP) PO SCH (22:34)
[2021-09-06] MEDS: CEPHALEXIN MONOHYDRATE 500 MG CAPSULE (UD) PO SCH ×4 (00:59→17:43)
[2021-09-06] MEDS: LORazepam 1 MG TABLET PO SCH ×4 (05:27→22:50)
[2021-09-06] MEDS: PRENATAL VITAMINS W/ FOLIC ACID TABLET (FP) PO SCH (10:37)
[2021-09-06] MEDS: METHOCARBAMOL 500 MG TABLET PO PRN ×2 (10:37→17:44)
[2021-09-06] MEDS: BACITRACIN 0.9 GM PACKET TP SCH ×2 (10:39→22:51)
[2021-09-06 10:52] LABS: HEMATOCRIT 44.6 % (35.4-49); HEMOGLOBIN 15.2 GM/dL (11.7-16.9); MCH 31.4 pg (25.7-33.7); MCHC 34.1 g/dl (32.0-35.9); MEAN CELL VOLUME 92.2 fl (80-96); MEAN PLT VOLUME 7.9 fl (7.5-11.1); PLATELET COUNT 340 10^3/uL (134-434); RBC 4.84 M/mm3 (4.00-5.60); RDW 13.7 % (11.9-15.9); WHITE BLOOD COUNT 8.4 K/mm3 (4.0-10.0)
[2021-09-06 11:15] LABS: CALCIUM 9.2 mg/dL (8.5-10.1)
[2021-09-06 11:16] LABS: BLOOD UREA NITROGEN 6.9 mg/dL (7-18)
[2021-09-06 11:18] LABS: CREATININE 0.6 mg/dL (0.55-1.3)
[2021-09-06 11:20] LABS: TOT PROT 6.7 g/dl (6.4-8.2)
[2021-09-06 11:22] LABS: BILIRUBIN,TOTAL 0.5 mg/dL (0.2-1)
[2021-09-06] MEDS: amLODIPine BESYLATE 5 MG TABLET (FP) PO SCH (12:50)
[2021-09-06 17:31] LABS: PH,URINE 7.5 (5.0-8.0); URINE APPEARANCE CLEAR; URINE BILIRUBIN NEGATIVE (NEGATIVE); URINE COLOR YELLOW; URINE GLUCOSE (UA) NEGATIVE (NEGATIVE); URINE KETONE NEGATIVE (NEGATIVE); URINE LEUK ESTERASE NEGATIVE (NEGATIVE); URINE NITRITE NEGATIVE (NEGATIVE); URINE PROTEIN NEGATIVE (NEGATIVE); URINE UROBILINOGEN 0.2 mg/dL (0.2-1.0)
[2021-09-06] MEDS: hydrOXYzine PAMOATE 25 MG CAPSULE (FP) PO PRN ×2 (17:46→22:50)
[2021-09-06] MEDS: THIAMINE HCL 100 MG TABLET (FP) PO SCH (22:50)
[2021-09-06] MEDS: OLANZapine 5 MG TABLET PO SCH (22:51)
[2021-09-07] MEDS ORDERED: LORazepam 0.5 MG TABLET PO PRN
[2021-09-07] MEDS: CEPHALEXIN MONOHYDRATE 500 MG CAPSULE (UD) PO SCH ×4 (01:14→17:37)
[2021-09-07] MEDS: LORazepam 0.5 MG TABLET PO SCH ×3 (05:39→17:55)
[2021-09-07] MEDS: IBUPROFEN 400 MG TABLET (FP) PO PRN ×2 (05:40→13:37)
[2021-09-07] MEDS: PRENATAL VITAMINS W/ FOLIC ACID TABLET (FP) PO SCH (10:25)
[2021-09-07] MEDS: amLODIPine BESYLATE 5 MG TABLET (FP) PO SCH (10:25)
[2021-09-07] MEDS: BACITRACIN 0.9 GM PACKET TP SCH (10:25)
[2021-09-07] MEDS: hydrOXYzine PAMOATE 25 MG CAPSULE (FP) PO PRN ×2 (10:26→15:05)
[2021-09-07] MEDS: METHOCARBAMOL 500 MG TABLET PO PRN (13:37)
[2021-09-07 17:40] VITALS: BP 130/67; PULSE 104; TEMP 97
[2021-09-08] MEDS ORDERED: LORazepam 0.5 MG TABLET PO ONE (05:00)
== END 2021-09-07 17:42 | disposition left against medical advice (07) | DRG 770 ==
LOC: YASAS 18:14 → Y6N 20:52
PROVIDERS: ADMIT Allergy & Immunology; ATTEND Allergy & Immunology
PROC: HZ2ZZZZ Detoxification Services for Substance Abuse Treatment (ICD-10-PCS; principal; 2021-09-04)
DX: F10.230 Alcohol dependence with withdrawal, uncomplicated (principal); F14.20 Cocaine dependence, uncomplicated; F12.20 Cannabis dependence, uncomplicated; F11.10 Opioid abuse, uncomplicated; F16.10 Hallucinogen abuse, uncomplicated; F17.210 Nicotine dependence, cigarettes, uncomplicated; F19.24 Other psychoactive substance dependence with psychoactive substance-induced mood disorder; F25.9 Schizoaffective disorder, unspecified; R73.03 Prediabetes; R00.0 Tachycardia, unspecified; T22.19 Burn of first degree of multiple sites of shoulder and upper limb, except wrist and hand; T24.10 Burn of first degree of unspecified site of lower limb, except ankle and foot; X08.8XXD Exposure to other specified smoke, fire and flames, subsequent encounter
CPT/HCPCS: 36415; 80053; 81003; 85027; 86780; 90686; 93005; 93010; C9803; G0008; U0003; U0005

== ENCOUNTER 2022-12-21 11:50 | Inpatient (IN) | payer OTHER ==
[2022-12-21 13:14] VITALS: BMI 20.2
[2022-12-21] MEDS ORDERED: NALOXONE HCL 0.4 MG/ML VIAL IM PRN (15:32)
[2022-12-21] MEDS ORDERED: cloNIDine HCL 0.1 MG TABLET PO PRN (15:32)
[2022-12-21] MEDS ORDERED: LOPERAMIDE HCL 2 MG CAPSULE PO PRN (15:32)
[2022-12-21] MEDS ORDERED: NALOXONE HCL (KLOXXADO) 8 MG SPRAY NS PRN (15:32)
[2022-12-21] MEDS ORDERED: ACETAMINOPHEN 325 MG TABLET (FP) PO PRN (15:32)
[2022-12-21] MEDS ORDERED: POLYETHYLENE GLYCOL (HEALTHYLAX) 3350 17 GM PACKET PO PRN (15:32)
[2022-12-21] MEDS ORDERED: IBUPROFEN 600 MG TABLET (FP) PO PRN (15:32)
[2022-12-21] MEDS ORDERED: IBUPROFEN 400 MG TABLET (FP) PO PRN (15:32)
[2022-12-21] MEDS ORDERED: DICYCLOMINE HCL 10 MG CAPSULE PO PRN (15:32)
[2022-12-21] MEDS ORDERED: guaiFENesin 600 MG TABLET.ER (FP) PO PRN (15:32)
[2022-12-21] MEDS ORDERED: methaDONE HCL 10 MG TABLET (FOR DETOX USE ONLY) PO ONE (15:32)
[2022-12-21] MEDS ORDERED: NICOTINE 10 MG CARTRIDGE (INHALER) IH PRN (15:32)
[2022-12-21] MEDS ORDERED: MAG HYDROX/AL HYDROX/SIMETH 30 ML UNIT-DOSE CUP PO PRN (15:32)
[2022-12-21] MEDS ORDERED: BENZOCAINE/MENTHOL (CHLORASEPTIC ) LOZENGE MM PRN (15:32)
[2022-12-21] MEDS ORDERED: MAGNESIUM HYDROX 2400MG/30ML ORAL SUSPENSION 30 ML CUP PO PRN (15:32)
[2022-12-21] MEDS ORDERED: ONDANSETRON *ODT* 4 MG TABLET SL PRN (15:32)
[2022-12-21] MEDS ORDERED: BENZONATATE 200 MG CAPSULE PO PRN (15:32)
[2022-12-21] MEDS ORDERED: methaDONE HCL 10 MG TABLET (FOR DETOX USE ONLY) ONE (17:09)
[2022-12-21] MEDS: PRENATAL VITAMINS W/ FOLIC ACID TABLET (FP) PO SCH (17:13)
[2022-12-21] MEDS: METHOCARBAMOL 500 MG TABLET PO PRN (22:28)
[2022-12-21] MEDS: THIAMINE HCL 100 MG TABLET (FP) PO SCH (22:28)
[2022-12-21] MEDS: MELATONIN 5 MG TABLETS PO SCH (22:29)
[2022-12-21] MEDS: hydrOXYzine PAMOATE 25 MG CAPSULE (FP) PO PRN (22:29)
[2022-12-22] MEDS: amLODIPine BESYLATE 5 MG TABLET (FP) PO SCH (10:44)
[2022-12-22] MEDS: PRENATAL VITAMINS W/ FOLIC ACID TABLET (FP) PO SCH (10:45)
[2022-12-22 13:17] LABS: HEMATOCRIT 43.6 % (35.4-49); HEMOGLOBIN 14.6 GM/dL (11.7-16.9); MCH 31.9 pg (25.7-33.7); MCHC 33.3 g/dl (32.0-35.9); MEAN CELL VOLUME 95.8 fl (80-96); MEAN PLT VOLUME 8.5 fl (7.5-11.1); PLATELET COUNT 230 10^3/uL (134-434); RBC 4.56 M/mm3 (4.00-5.60); RDW 13.6 % (11.9-15.9); WHITE BLOOD COUNT 8.5 K/mm3 (4.0-10.0)
[2022-12-22 13:24] LABS: ALBUMIN 3.1 g/dl (3.4-5.0); BLOOD UREA NITROGEN 12.8 mg/dL (7-18); CALCIUM 8.2 mg/dL (8.5-10.1)
[2022-12-22 13:27] LABS: CREATININE 0.7 mg/dL (0.55-1.3)
[2022-12-22 13:28] LABS: BILIRUBIN,TOTAL 0.7 mg/dL (0.2-1)
[2022-12-22 13:29] LABS: TOT PROT 6.2 g/dl (6.4-8.2)
[2022-12-22] MEDS: hydrOXYzine PAMOATE 25 MG CAPSULE (FP) PO PRN (17:52)
[2022-12-22] MEDS: BISMUTH SUBSALICYLATE 262 MG/15 ML BTL PO PRN (18:57)
[2022-12-22] MEDS: THIAMINE HCL 100 MG TABLET (FP) PO SCH (21:55)
[2022-12-22] MEDS: MELATONIN 5 MG TABLETS PO SCH (21:55)
[2022-12-23] MEDS ORDERED: methaDONE HCL 10 MG TABLET (FOR DETOX USE ONLY) PO ONE (10:00)
[2022-12-23] MEDS: METHOCARBAMOL 500 MG TABLET PO PRN ×2 (10:12→22:29)
[2022-12-23] MEDS: amLODIPine BESYLATE 5 MG TABLET (FP) PO SCH (10:12)
[2022-12-23] MEDS: PRENATAL VITAMINS W/ FOLIC ACID TABLET (FP) PO SCH (10:12)
[2022-12-23] MEDS: NICOTINE POLACRILEX 2 MG GUM BUC PRN ×2 (10:14→14:58)
[2022-12-23] MEDS: hydrOXYzine PAMOATE 25 MG CAPSULE (FP) PO PRN ×2 (14:55→22:29)
[2022-12-23] MEDS: BISMUTH SUBSALICYLATE 262 MG/15 ML BTL PO PRN (14:55)
[2022-12-23] MEDS: MELATONIN 5 MG TABLETS PO SCH (22:28)
[2022-12-23] MEDS: THIAMINE HCL 100 MG TABLET (FP) PO SCH (22:28)
[2022-12-24] MEDS: PRENATAL VITAMINS W/ FOLIC ACID TABLET (FP) PO SCH (10:24)
[2022-12-24] MEDS: amLODIPine BESYLATE 5 MG TABLET (FP) PO SCH (10:24)
[2022-12-24] MEDS: METHOCARBAMOL 500 MG TABLET PO PRN (17:57)
[2022-12-24] MEDS: hydrOXYzine PAMOATE 25 MG CAPSULE (FP) PO PRN ×2 (17:57→22:24)
[2022-12-24] MEDS: MELATONIN 5 MG TABLETS PO SCH (22:23)
[2022-12-24] MEDS: THIAMINE HCL 100 MG TABLET (FP) PO SCH (22:24)
[2022-12-25] MEDS ORDERED: methaDONE HCL 10 MG TABLET (FOR DETOX USE ONLY) PO ONE (10:00)
[2022-12-25] MEDS: PRENATAL VITAMINS W/ FOLIC ACID TABLET (FP) PO SCH (10:22)
[2022-12-25] MEDS: amLODIPine BESYLATE 5 MG TABLET (FP) PO SCH (10:22)
[2022-12-25] MEDS: hydrOXYzine PAMOATE 25 MG CAPSULE (FP) PO PRN (22:29)
[2022-12-25] MEDS: THIAMINE HCL 100 MG TABLET (FP) PO SCH (22:29)
[2022-12-25] MEDS: MELATONIN 5 MG TABLETS PO SCH (22:29)
[2022-12-25] MEDS: METHOCARBAMOL 500 MG TABLET PO PRN (22:29)
[2022-12-26 06:26] VITALS: RESP 16; TEMP 98
[2022-12-26 09:47] VITALS: BP 129/67; PULSE 73
[2022-12-26] MEDS: PRENATAL VITAMINS W/ FOLIC ACID TABLET (FP) PO SCH (09:59)
[2022-12-26] MEDS: amLODIPine BESYLATE 5 MG TABLET (FP) PO SCH (09:59)
== END 2022-12-26 11:16 | disposition home or self-care (01) | DRG 773 ==
LOC: YASAS 11:50 → Y6N 15:47
PROVIDERS: ADMIT Allergy & Immunology; ATTEND Surgery
PROC: HZ2ZZZZ Detoxification Services for Substance Abuse Treatment (ICD-10-PCS; principal; 2022-12-21)
DX: F11.23 Opioid dependence with withdrawal (principal); F14.20 Cocaine dependence, uncomplicated; F17.210 Nicotine dependence, cigarettes, uncomplicated; F31.9 Bipolar disorder, unspecified; F25.9 Schizoaffective disorder, unspecified; G40.909 Epilepsy, unspecified, not intractable, without status epilepticus; I10 Essential (primary) hypertension; R63.4 Abnormal weight loss; Z68.20 Body mass index [BMI] 20.0-20.9, adult; Z59.00 Homelessness unspecified
CPT/HCPCS: 36415; 80053; 85027; 86780; 87811; 93005; 93010; C9803-CS; U0003; U0005

== ENCOUNTER 2023-01-26 21:55 | Inpatient (IN) | payer OTHER ==
[2023-01-26 22:31] VITALS: BMI 21.2
[2023-01-26] MEDS ORDERED: NICOTINE POLACRILEX 2 MG GUM BUC PRN (22:57)
[2023-01-26] MEDS ORDERED: ONDANSETRON *ODT* 4 MG TABLET SL PRN (22:57)
[2023-01-26] MEDS ORDERED: BENZONATATE 200 MG CAPSULE PO PRN (22:57)
[2023-01-26] MEDS ORDERED: NALOXONE HCL (KLOXXADO) 8 MG SPRAY NS PRN (22:57)
[2023-01-26] MEDS ORDERED: NICOTINE 10 MG CARTRIDGE (INHALER) IH PRN (22:57)
[2023-01-26] MEDS ORDERED: BENZOCAINE/MENTHOL (CHLORASEPTIC ) LOZENGE MM PRN (22:57)
[2023-01-26] MEDS ORDERED: POLYETHYLENE GLYCOL (HEALTHYLAX) 3350 17 GM PACKET PO PRN (22:57)
[2023-01-26] MEDS ORDERED: guaiFENesin 600 MG TABLET.ER (FP) PO PRN (22:57)
[2023-01-26] MEDS ORDERED: P-EPHED 60MG/TRIPROLIDI 2.5MG TABLET PO PRN (22:57)
[2023-01-26] MEDS ORDERED: NALOXONE HCL 0.4 MG/ML VIAL IM PRN (22:57)
[2023-01-26] MEDS ORDERED: BISMUTH SUBSALICYLATE 524 MG/30 ML PO PRN (22:57)
[2023-01-26] MEDS ORDERED: ACETAMINOPHEN 325 MG TABLET (FP) PO PRN (22:57)
[2023-01-26] MEDS ORDERED: IBUPROFEN 400 MG TABLET (FP) PO PRN (22:57)
[2023-01-26] MEDS ORDERED: MAGNESIUM HYDROX 2400MG/30ML ORAL SUSPENSION 30 ML CUP PO PRN (22:57)
[2023-01-26] MEDS ORDERED: MAG HYDROX/AL HYDROX/SIMETH 30 ML UNIT-DOSE CUP PO PRN (22:57)
[2023-01-26] MEDS ORDERED: diphenhydrAMINE HCL 25 MG CAPSULE (FP) PO ONE (22:57)
[2023-01-26] MEDS ORDERED: MELATONIN 5 MG TABLETS PO PRN (22:57)
[2023-01-26] MEDS ORDERED: DICYCLOMINE HCL 10 MG CAPSULE PO PRN (22:57)
[2023-01-26] MEDS ORDERED: LOPERAMIDE HCL 2 MG CAPSULE PO PRN (22:57)
[2023-01-26] MEDS ORDERED: methaDONE HCL 10 MG TABLET (FOR DETOX USE ONLY) PO ONE (23:02)
[2023-01-27] MEDS: METHOCARBAMOL 500 MG TABLET PO PRN (00:54)
[2023-01-27] MEDS: cloNIDine HCL 0.1 MG TABLET PO PRN ×2 (00:54→21:46)
[2023-01-27] MEDS: IBUPROFEN 600 MG TABLET (FP) PO PRN ×2 (00:54→23:02)
[2023-01-27] MEDS: VITAMINS A AND D TOPICAL OINTMENT 60 GM TUBE TP SCH ×4 (01:06→19:13)
[2023-01-27] MEDS: PRENATAL VITAMINS W/ FOLIC ACID TABLET (FP) PO SCH (10:37)
[2023-01-27 12:16] LABS: HEMATOCRIT 37.5 % (35.4-49); HEMOGLOBIN 13.5 GM/dL (11.7-16.9); MCH 33.1 pg (25.7-33.7); MCHC 36.1 g/dl (32.0-35.9); MEAN CELL VOLUME 91.6 fl (80-96); MEAN PLT VOLUME 8.8 fl (7.5-11.1); PLATELET COUNT 268 10^3/uL (134-434); RBC 4.09 M/mm3 (4.00-5.60); RDW 13.2 % (11.9-15.9); WHITE BLOOD COUNT 5.5 K/mm3 (4.0-10.0)
[2023-01-27 12:21] LABS: ALBUMIN 3.3 g/dl (3.4-5.0); BLOOD UREA NITROGEN 17.7 mg/dL (7-18); CALCIUM 8.7 mg/dL (8.5-10.1)
[2023-01-27 12:26] LABS: BILIRUBIN,TOTAL 0.6 mg/dL (0.2-1); TOT PROT 6.2 g/dl (6.4-8.2)
[2023-01-27] MEDS: OLANZapine 5 MG TABLET PO SCH (21:46)
[2023-01-27] MEDS: THIAMINE HCL 100 MG TABLET (FP) PO SCH (21:46)
[2023-01-28] MEDS: VITAMINS A AND D TOPICAL OINTMENT 60 GM TUBE TP SCH ×4 (01:00→19:28)
[2023-01-28] MEDS ORDERED: methaDONE HCL 10 MG TABLET (FOR DETOX USE ONLY) PO ONE (10:00)
[2023-01-28] MEDS: PRENATAL VITAMINS W/ FOLIC ACID TABLET (FP) PO SCH (10:24)
[2023-01-28] MEDS: METHOCARBAMOL 500 MG TABLET PO PRN (10:24)
[2023-01-28] MEDS: cloNIDine HCL 0.1 MG TABLET PO PRN (10:35)
[2023-01-28] MEDS ORDERED: SENNOSIDES 8.6MG TABLET (FP) PO PRN (15:30)
[2023-01-28] MEDS ORDERED: DOCUSATE SODIUM 100 MG CAPSULE (FP) PO PRN (15:30)
[2023-01-28] MEDS: SUVOREXANT 10 MG TABLET PO PRN (21:41)
[2023-01-28] MEDS: THIAMINE HCL 100 MG TABLET (FP) PO SCH (22:51)
[2023-01-28] MEDS: OLANZapine 5 MG TABLET PO SCH (22:51)
[2023-01-29] MEDS: VITAMINS A AND D TOPICAL OINTMENT 60 GM TUBE TP SCH ×4 (01:34→18:25)
[2023-01-29] MEDS: METHOCARBAMOL 500 MG TABLET PO PRN (09:47)
[2023-01-29] MEDS: PRENATAL VITAMINS W/ FOLIC ACID TABLET (FP) PO SCH (09:47)
[2023-01-29] MEDS: OLANZapine 5 MG TABLET PO SCH (23:00)
[2023-01-29] MEDS: THIAMINE HCL 100 MG TABLET (FP) PO SCH (23:00)
[2023-01-29] MEDS: SUVOREXANT 10 MG TABLET PO PRN (23:21)
[2023-01-30] MEDS: VITAMINS A AND D TOPICAL OINTMENT 60 GM TUBE TP SCH ×4 (00:18→17:54)
[2023-01-30] MEDS: PRENATAL VITAMINS W/ FOLIC ACID TABLET (FP) PO SCH (09:44)
[2023-01-30] MEDS: METHOCARBAMOL 500 MG TABLET PO PRN ×2 (09:44→21:12)
[2023-01-30] MEDS ORDERED: methaDONE HCL 10 MG TABLET (FOR DETOX USE ONLY) PO ONE (10:00)
[2023-01-30] MEDS: OLANZapine 5 MG TABLET PO SCH (21:12)
[2023-01-30] MEDS: THIAMINE HCL 100 MG TABLET (FP) PO SCH (21:12)
[2023-01-30] MEDS ORDERED: SUVOREXANT 10 MG TABLET PO PRN (22:00)
[2023-01-31] MEDS: VITAMINS A AND D TOPICAL OINTMENT 60 GM TUBE TP SCH ×3 (00:11→11:22)
[2023-01-31 09:25] VITALS: TEMP 96.9
[2023-01-31] MEDS: PRENATAL VITAMINS W/ FOLIC ACID TABLET (FP) PO SCH (09:45)
[2023-01-31 14:04] VITALS: BP 126/68; PULSE 79; RESP 16
== END 2023-01-31 14:00 | disposition home or self-care (01) | DRG 773 ==
LOC: YASAS 21:55 → Y6N 23:37
PROVIDERS: ADMIT Allergy & Immunology; ATTEND Surgery
PROC: HZ2ZZZZ Detoxification Services for Substance Abuse Treatment (ICD-10-PCS; principal; 2023-01-26)
DX: F11.23 Opioid dependence with withdrawal (principal); F14.20 Cocaine dependence, uncomplicated; F12.20 Cannabis dependence, uncomplicated; F16.20 Hallucinogen dependence, uncomplicated; F17.210 Nicotine dependence, cigarettes, uncomplicated; F19.282 Other psychoactive substance dependence with psychoactive substance-induced sleep disorder; F19.24 Other psychoactive substance dependence with psychoactive substance-induced mood disorder; F20.9 Schizophrenia, unspecified; U07.1 COVID-19; I10 Essential (primary) hypertension; Z86.69 Personal history of other diseases of the nervous system and sense organs; Z56.0 Unemployment, unspecified; Z59.00 Homelessness unspecified
CPT/HCPCS: 36415; 80053; 85027; 86780; 87811; C9803-CS; U0003; U0005

== ENCOUNTER 2023-02-21 22:18 | Inpatient (IN) | payer OTHER ==
[2023-02-21 23:05] VITALS: BMI 21.7
[2023-02-21] MEDS ORDERED: SENNOSIDES 8.6MG TABLET (FP) PO PRN (23:23)
[2023-02-21] MEDS ORDERED: DOCUSATE SODIUM 100 MG CAPSULE (FP) PO PRN (23:23)
[2023-02-21] MEDS ORDERED: NALOXONE (NARCAN) HCL 4 MG/0.1 ML SPRAY NS PRN (23:23)
[2023-02-21] MEDS ORDERED: IBUPROFEN 400 MG TABLET (FP) PO PRN (23:41)
[2023-02-21] MEDS ORDERED: ACETAMINOPHEN 325 MG TABLET (FP) PO PRN (23:41)
[2023-02-21] MEDS ORDERED: ONDANSETRON *ODT* 4 MG TABLET SL PRN (23:41)
[2023-02-21] MEDS ORDERED: BENZONATATE 200 MG CAPSULE PO PRN (23:41)
[2023-02-21] MEDS ORDERED: MAG HYDROX/AL HYDROX/SIMETH 30 ML UNIT-DOSE CUP PO PRN (23:41)
[2023-02-21] MEDS ORDERED: MAGNESIUM HYDROX 2400MG/30ML ORAL SUSPENSION 30 ML CUP PO PRN (23:41)
[2023-02-21] MEDS ORDERED: DICYCLOMINE HCL 10 MG CAPSULE PO PRN (23:41)
[2023-02-21] MEDS ORDERED: BENZOCAINE/MENTHOL (CHLORASEPTIC ) LOZENGE MM PRN (23:41)
[2023-02-21] MEDS ORDERED: BISMUTH SUBSALICYLATE 524 MG/30 ML PO PRN (23:41)
[2023-02-21] MEDS ORDERED: guaiFENesin 600 MG TABLET.ER (FP) PO PRN (23:41)
[2023-02-21] MEDS ORDERED: LOPERAMIDE HCL 2 MG CAPSULE PO PRN (23:41)
[2023-02-21] MEDS ORDERED: NALOXONE HCL 0.4 MG/ML VIAL IM PRN (23:41)
[2023-02-21] MEDS ORDERED: POLYETHYLENE GLYCOL (HEALTHYLAX) 3350 17 GM PACKET PO PRN (23:41)
[2023-02-21] MEDS ORDERED: NALOXONE HCL (KLOXXADO) 8 MG SPRAY NS PRN (23:41)
[2023-02-21] MEDS ORDERED: NICOTINE POLACRILEX 2 MG GUM BUC PRN (23:41)
[2023-02-21] MEDS ORDERED: P-EPHED 60MG/TRIPROLIDI 2.5MG TABLET PO PRN (23:41)
[2023-02-21] MEDS ORDERED: AMMONIUM LACTATE 12% LOTION 225 GM BOTTLE TP PRN (23:44)
[2023-02-22] MEDS ORDERED: hydrOXYzine PAMOATE 25 MG CAPSULE (FP) PO ONE (00:20)
[2023-02-22] MEDS ORDERED: METHOCARBAMOL 500 MG TABLET ONE (00:20)
[2023-02-22] MEDS: METHOCARBAMOL 500 MG TABLET PO PRN ×2 (00:25→10:28)
[2023-02-22] MEDS: hydrOXYzine PAMOATE 25 MG CAPSULE (FP) PO PRN ×2 (00:25→10:28)
[2023-02-22] MEDS: amLODIPine BESYLATE 5 MG TABLET (FP) PO SCH (10:27)
[2023-02-22] MEDS: PRENATAL VITAMINS W/ FOLIC ACID TABLET (FP) PO SCH (10:27)
[2023-02-22] MEDS: THIAMINE HCL 100 MG TABLET (FP) PO SCH (22:01)
[2023-02-22] MEDS: OLANZapine 5 MG TABLET PO SCH (22:01)
[2023-02-22] MEDS: MELATONIN 5 MG TABLETS PO SCH (22:01)
[2023-02-23] MEDS ORDERED: cloNIDine HCL 0.1 MG TABLET PO PRN (09:30)
[2023-02-23] MEDS ORDERED: diazePAM 5 MG TABLET PO PRN (09:32)
[2023-02-23] MEDS ORDERED: chlordiazePOXIDE HCL 25 MG CAPSULE PO PRN (09:39)
[2023-02-23] MEDS ORDERED: methaDONE HCL 10 MG TABLET (FOR DETOX USE ONLY) PO ONE (10:00)
[2023-02-23] MEDS: chlordiazePOXIDE HCL 25 MG CAPSULE PO SCH ×3 (10:05→22:53)
[2023-02-23] MEDS: PRENATAL VITAMINS W/ FOLIC ACID TABLET (FP) PO SCH (10:05)
[2023-02-23] MEDS: amLODIPine BESYLATE 5 MG TABLET (FP) PO SCH (10:05)
[2023-02-23] MEDS: METHOCARBAMOL 500 MG TABLET PO PRN ×2 (10:06→17:42)
[2023-02-23] MEDS: THIAMINE HCL 100 MG TABLET (FP) PO SCH (22:50)
[2023-02-23] MEDS: MELATONIN 5 MG TABLETS PO SCH (22:51)
[2023-02-23] MEDS: OLANZapine 5 MG TABLET PO SCH (22:51)
[2023-02-23] MEDS: ACETAMINOPHEN 325 MG TABLET (FP) PO PRN (22:54)
[2023-02-24] MEDS: chlordiazePOXIDE HCL 25 MG CAPSULE PO SCH ×2 (05:40→10:11)
[2023-02-24] MEDS: amLODIPine BESYLATE 5 MG TABLET (FP) PO SCH (10:07)
[2023-02-24] MEDS: PRENATAL VITAMINS W/ FOLIC ACID TABLET (FP) PO SCH (10:07)
[2023-02-24] MEDS: MELATONIN 5 MG TABLETS PO SCH ×2 (21:35→22:17)
[2023-02-24] MEDS: THIAMINE HCL 100 MG TABLET (FP) PO SCH (21:35)
[2023-02-24] MEDS: OLANZapine 5 MG TABLET PO SCH (21:35)
[2023-02-24] MEDS: ACETAMINOPHEN 325 MG TABLET (FP) PO PRN (22:17)
[2023-02-25] MEDS: chlordiazePOXIDE HCL 25 MG CAPSULE PO SCH ×2 (05:20→10:15)
[2023-02-25] MEDS ORDERED: methaDONE HCL 10 MG TABLET (FOR DETOX USE ONLY) PO ONE (10:00)
[2023-02-25] MEDS: amLODIPine BESYLATE 5 MG TABLET (FP) PO SCH (10:12)
[2023-02-25] MEDS: PRENATAL VITAMINS W/ FOLIC ACID TABLET (FP) PO SCH (10:12)
[2023-02-25] MEDS: diazePAM 5 MG TABLET PO PRN ×2 (17:35→22:23)
[2023-02-25] MEDS: ACETAMINOPHEN 325 MG TABLET (FP) PO PRN (18:52)
[2023-02-25] MEDS: MELATONIN 5 MG TABLETS PO SCH (22:23)
[2023-02-25] MEDS: THIAMINE HCL 100 MG TABLET (FP) PO SCH (22:23)
[2023-02-25] MEDS: OLANZapine 5 MG TABLET PO SCH (22:23)
[2023-02-26] MEDS ORDERED: chlordiazePOXIDE HCL 10 MG CAPSULE PO PRN
[2023-02-26] MEDS ORDERED: chlordiazePOXIDE HCL 10 MG CAPSULE PO SCH (05:00)
[2023-02-26] MEDS: amLODIPine BESYLATE 5 MG TABLET (FP) PO SCH (10:11)
[2023-02-26] MEDS: METHOCARBAMOL 500 MG TABLET PO PRN ×2 (10:11→22:11)
[2023-02-26] MEDS: IBUPROFEN 600 MG TABLET (FP) PO PRN (10:12)
[2023-02-26] MEDS: PRENATAL VITAMINS W/ FOLIC ACID TABLET (FP) PO SCH (10:13)
[2023-02-26] MEDS: diazePAM 5 MG TABLET PO PRN (18:33)
[2023-02-26] MEDS: OLANZapine 5 MG TABLET PO SCH (22:10)
[2023-02-26] MEDS: THIAMINE HCL 100 MG TABLET (FP) PO SCH (22:10)
[2023-02-26] MEDS: MELATONIN 5 MG TABLETS PO SCH (22:10)
[2023-02-26] MEDS: hydrOXYzine PAMOATE 25 MG CAPSULE (FP) PO PRN (22:11)
[2023-02-27] MEDS ORDERED: chlordiazePOXIDE HCL 10 MG CAPSULE PO SCH (05:00)
[2023-02-27] MEDS ORDERED: methaDONE HCL 10 MG TABLET (FOR DETOX USE ONLY) PO ONE (10:00)
[2023-02-27] MEDS: IBUPROFEN 600 MG TABLET (FP) PO PRN (10:12)
[2023-02-27] MEDS: METHOCARBAMOL 500 MG TABLET PO PRN ×2 (10:12→22:05)
[2023-02-27] MEDS: amLODIPine BESYLATE 5 MG TABLET (FP) PO SCH (10:12)
[2023-02-27] MEDS: hydrOXYzine PAMOATE 25 MG CAPSULE (FP) PO PRN ×2 (10:12→22:05)
[2023-02-27] MEDS: PRENATAL VITAMINS W/ FOLIC ACID TABLET (FP) PO SCH (10:13)
[2023-02-27] MEDS: OLANZapine 5 MG TABLET PO SCH (22:04)
[2023-02-27] MEDS: MELATONIN 5 MG TABLETS PO SCH (22:05)
[2023-02-27] MEDS: diazePAM 5 MG TABLET PO PRN (22:05)
[2023-02-27] MEDS: THIAMINE HCL 100 MG TABLET (FP) PO SCH (22:05)
[2023-02-28] MEDS ORDERED: chlordiazePOXIDE HCL 10 MG CAPSULE PO ONE (05:00)
[2023-02-28] MEDS: PRENATAL VITAMINS W/ FOLIC ACID TABLET (FP) PO SCH (09:46)
[2023-02-28] MEDS: amLODIPine BESYLATE 5 MG TABLET (FP) PO SCH (09:46)
[2023-02-28 09:49] VITALS: BP 143/74; PULSE 80; RESP 17; TEMP 98
== END 2023-02-28 11:50 | disposition home or self-care (01) | DRG 773 ==
LOC: YASAS 22:18 → UNDOADMIN 02-22 00:59 → Y6N 02-22 00:59
PROVIDERS: ADMIT Allergy & Immunology; ATTEND Surgery
PROC: HZ2ZZZZ Detoxification Services for Substance Abuse Treatment (ICD-10-PCS; principal; 2023-02-22)
DX: F11.23 Opioid dependence with withdrawal (principal); F10.230 Alcohol dependence with withdrawal, uncomplicated; F14.20 Cocaine dependence, uncomplicated; F17.210 Nicotine dependence, cigarettes, uncomplicated; F25.9 Schizoaffective disorder, unspecified; Z56.0 Unemployment, unspecified; Z59.00 Homelessness unspecified
CPT/HCPCS: 87811; C9803-CS; U0003; U0005

== ENCOUNTER 2023-03-30 12:35 | Inpatient (IN) | payer OTHER ==
[2023-03-30 13:54] VITALS: BMI 21.6
[2023-03-30] MEDS ORDERED: NALOXONE HCL 0.4 MG/ML VIAL IM PRN (17:03)
[2023-03-30] MEDS ORDERED: POLYETHYLENE GLYCOL (HEALTHYLAX) 3350 17 GM PACKET PO PRN (17:03)
[2023-03-30] MEDS ORDERED: NALOXONE HCL (KLOXXADO) 8 MG SPRAY NS PRN (17:03)
[2023-03-30] MEDS ORDERED: MAG HYDROX/AL HYDROX/SIMETH 30 ML UNIT-DOSE CUP PO PRN (17:03)
[2023-03-30] MEDS ORDERED: LOPERAMIDE HCL 2 MG CAPSULE PO PRN (17:03)
[2023-03-30] MEDS ORDERED: guaiFENesin 600 MG TABLET.ER (FP) PO PRN (17:03)
[2023-03-30] MEDS ORDERED: MAGNESIUM HYDROX 2400MG/30ML ORAL SUSPENSION 30 ML CUP PO PRN (17:03)
[2023-03-30] MEDS ORDERED: BISMUTH SUBSALICYLATE 524 MG/30 ML PO PRN (17:03)
[2023-03-30] MEDS ORDERED: BENZONATATE 200 MG CAPSULE PO PRN (17:03)
[2023-03-30] MEDS ORDERED: BENZOCAINE/MENTHOL (CHLORASEPTIC ) LOZENGE MM PRN (17:03)
[2023-03-30] MEDS ORDERED: ACETAMINOPHEN 325 MG TABLET (FP) PO PRN (17:03)
[2023-03-30] MEDS ORDERED: IBUPROFEN 400 MG TABLET (FP) PO PRN (17:03)
[2023-03-30] MEDS ORDERED: IBUPROFEN 600 MG TABLET (FP) PO PRN (17:03)
[2023-03-30] MEDS ORDERED: NICOTINE 10 MG CARTRIDGE (INHALER) IH PRN (17:03)
[2023-03-30] MEDS ORDERED: cloNIDine HCL 0.1 MG TABLET PO PRN (17:03)
[2023-03-30] MEDS ORDERED: DICYCLOMINE HCL 10 MG CAPSULE PO PRN (17:03)
[2023-03-30] MEDS ORDERED: methaDONE HCL 10 MG TABLET (FOR DETOX USE ONLY) PO ONE (17:03)
[2023-03-30] MEDS ORDERED: methaDONE HCL 10 MG TABLET (FOR DETOX USE ONLY) ONE (17:22)
[2023-03-30] MEDS ORDERED: MELATONIN 5 MG TABLETS PO SCH (22:00)
[2023-03-30] MEDS: THIAMINE HCL 100 MG TABLET (FP) PO SCH (22:10)
[2023-03-30] MEDS: METHOCARBAMOL 500 MG TABLET PO PRN (22:10)
[2023-03-31] MEDS ORDERED: DOCUSATE SODIUM 100 MG CAPSULE (FP) PO PRN (08:48)
[2023-03-31] MEDS: PRENATAL VITAMINS W/ FOLIC ACID TABLET (FP) PO SCH (10:11)
[2023-03-31] MEDS: METHOCARBAMOL 500 MG TABLET PO PRN ×2 (10:13→22:31)
[2023-03-31] MEDS: amLODIPine BESYLATE 5 MG TABLET (FP) PO SCH (10:13)
[2023-03-31 11:46] LABS: HEMATOCRIT 40.9 % (35.4-49); HEMOGLOBIN 13.4 GM/dL (11.7-16.9); MCH 30.9 pg (25.7-33.7); MCHC 32.8 g/dl (32.0-35.9); MEAN CELL VOLUME 94.2 fl (80-96); MEAN PLT VOLUME 9.1 fl (7.5-11.1); PLATELET COUNT 244 10^3/uL (134-434); RBC 4.34 M/mm3 (4.00-5.60); RDW 13.7 % (11.9-15.9); WHITE BLOOD COUNT 6.5 K/mm3 (4.0-10.0)
[2023-03-31 11:48] LABS: POTASSIUM 3.7 mmol/L (3.5-5.1)
[2023-03-31 11:52] LABS: CALCIUM 8.6 mg/dL (8.5-10.1)
[2023-03-31 11:53] LABS: ALBUMIN 3.1 g/dl (3.4-5.0); BLOOD UREA NITROGEN 10.8 mg/dL (7-18)
[2023-03-31 11:56] LABS: CREATININE 0.7 mg/dL (0.55-1.3)
[2023-03-31 11:57] LABS: BILIRUBIN,TOTAL 0.6 mg/dL (0.2-1); TOT PROT 5.8 g/dl (6.4-8.2)
[2023-03-31] MEDS: DOCUSATE SODIUM 100 MG CAPSULE (FP) PO SCH (13:15)
[2023-03-31] MEDS: OLANZapine 5 MG TABLET PO SCH (22:31)
[2023-03-31] MEDS: THIAMINE HCL 100 MG TABLET (FP) PO SCH (22:31)
[2023-04-01] MEDS ORDERED: methaDONE HCL 10 MG TABLET (FOR DETOX USE ONLY) PO ONE (10:00)
[2023-04-01] MEDS: PRENATAL VITAMINS W/ FOLIC ACID TABLET (FP) PO SCH (10:03)
[2023-04-01] MEDS: amLODIPine BESYLATE 5 MG TABLET (FP) PO SCH (10:04)
[2023-04-01] MEDS: DOCUSATE SODIUM 100 MG CAPSULE (FP) PO SCH (10:04)
[2023-04-01] MEDS: OLANZapine 5 MG TABLET PO SCH (22:22)
[2023-04-01] MEDS: THIAMINE HCL 100 MG TABLET (FP) PO SCH (22:22)
[2023-04-01] MEDS: SENNOSIDES 8.6MG TABLET (FP) PO PRN (22:22)
[2023-04-02] MEDS: PRENATAL VITAMINS W/ FOLIC ACID TABLET (FP) PO SCH (10:33)
[2023-04-02] MEDS: amLODIPine BESYLATE 5 MG TABLET (FP) PO SCH (10:33)
[2023-04-02] MEDS: DOCUSATE SODIUM 100 MG CAPSULE (FP) PO SCH (10:33)
[2023-04-02] MEDS: THIAMINE HCL 100 MG TABLET (FP) PO SCH (22:19)
[2023-04-02] MEDS: METHOCARBAMOL 500 MG TABLET PO PRN (22:19)
[2023-04-02] MEDS: SENNOSIDES 8.6MG TABLET (FP) PO PRN (22:19)
[2023-04-02] MEDS: OLANZapine 5 MG TABLET PO SCH (22:19)
[2023-04-03] MEDS ORDERED: methaDONE HCL 10 MG TABLET (FOR DETOX USE ONLY) PO ONE ×2 (10:00→12:00)
[2023-04-03] MEDS: PRENATAL VITAMINS W/ FOLIC ACID TABLET (FP) PO SCH (11:00)
[2023-04-03] MEDS: amLODIPine BESYLATE 5 MG TABLET (FP) PO SCH (11:00)
[2023-04-03] MEDS: DOCUSATE SODIUM 100 MG CAPSULE (FP) PO SCH (11:00)
[2023-04-03] MEDS: OLANZapine 5 MG TABLET PO SCH (22:02)
[2023-04-03] MEDS: THIAMINE HCL 100 MG TABLET (FP) PO SCH (22:02)
[2023-04-03] MEDS: METHOCARBAMOL 500 MG TABLET PO PRN (22:02)
[2023-04-04 06:04] VITALS: TEMP 97.7
[2023-04-04 09:37] VITALS: BP 118/69; PULSE 91; RESP 18
[2023-04-04] MEDS: PRENATAL VITAMINS W/ FOLIC ACID TABLET (FP) PO SCH (11:39)
[2023-04-04] MEDS: DOCUSATE SODIUM 100 MG CAPSULE (FP) PO SCH (11:39)
[2023-04-04] MEDS: METHOCARBAMOL 500 MG TABLET PO PRN (11:40)
[2023-04-04] MEDS: amLODIPine BESYLATE 5 MG TABLET (FP) PO SCH (11:40)
== END 2023-04-04 13:33 | disposition home or self-care (01) | DRG 773 ==
LOC: YASAS 12:35 → Y6N 17:28
PROVIDERS: ADMIT Allergy & Immunology; ATTEND Surgery
DX: F11.23 Opioid dependence with withdrawal (principal); F14.20 Cocaine dependence, uncomplicated; F12.20 Cannabis dependence, uncomplicated; F19.282 Other psychoactive substance dependence with psychoactive substance-induced sleep disorder; F17.210 Nicotine dependence, cigarettes, uncomplicated; F25.1 Schizoaffective disorder, depressive type; I10 Essential (primary) hypertension; R63.4 Abnormal weight loss; Z68.21 Body mass index [BMI] 21.0-21.9, adult
CPT/HCPCS: 36415; 80053; 85027; 86780; 87635

== ENCOUNTER 2023-05-02 21:37 | Inpatient (IN) | payer OTHER ==
[2023-05-02 22:29] VITALS: BMI 21.9
[2023-05-03] MEDS ORDERED: IBUPROFEN 400 MG TABLET (FP) PO PRN (05:05)
[2023-05-03] MEDS ORDERED: BISMUTH SUBSALICYLATE 524 MG/30 ML PO PRN (05:05)
[2023-05-03] MEDS ORDERED: MAGNESIUM HYDROX 2400MG/30ML ORAL SUSPENSION 30 ML CUP PO PRN (05:05)
[2023-05-03] MEDS ORDERED: BENZONATATE 200 MG CAPSULE PO PRN (05:05)
[2023-05-03] MEDS ORDERED: MAG HYDROX/AL HYDROX/SIMETH 30 ML UNIT-DOSE CUP PO PRN (05:05)
[2023-05-03] MEDS ORDERED: NALOXONE HCL 0.4 MG/ML VIAL IM PRN (05:05)
[2023-05-03] MEDS ORDERED: ACETAMINOPHEN 325 MG TABLET (FP) PO PRN (05:05)
[2023-05-03] MEDS ORDERED: NICOTINE POLACRILEX 4 MG GUM BUC PRN (05:05)
[2023-05-03] MEDS ORDERED: guaiFENesin 600 MG TABLET.ER (FP) PO PRN (05:05)
[2023-05-03] MEDS ORDERED: DICYCLOMINE HCL 10 MG CAPSULE PO PRN (05:05)
[2023-05-03] MEDS ORDERED: LOPERAMIDE HCL 2 MG CAPSULE PO PRN (05:05)
[2023-05-03] MEDS ORDERED: IBUPROFEN 600 MG TABLET (FP) PO PRN (05:05)
[2023-05-03] MEDS ORDERED: POLYETHYLENE GLYCOL (HEALTHYLAX) 3350 17 GM PACKET PO PRN (05:05)
[2023-05-03] MEDS ORDERED: BENZOCAINE/MENTHOL (CHLORASEPTIC ) LOZENGE MM PRN (05:05)
[2023-05-03] MEDS ORDERED: NALOXONE HCL (KLOXXADO) 8 MG SPRAY NS PRN (05:05)
[2023-05-03] MEDS ORDERED: ONDANSETRON *ODT* 4 MG TABLET SL PRN (05:05)
[2023-05-03] MEDS ORDERED: PERMETHRIN 5% TOPICAL CREAM 60 GM TUBE TP ONE (07:00)
[2023-05-03] MEDS ORDERED: PERMETHRIN 5% TOPICAL CREAM 60 GM TUBE ONE (09:00)
[2023-05-03] MEDS: PRENATAL VITAMINS W/ FOLIC ACID TABLET (FP) PO SCH (10:57)
[2023-05-03] MEDS: NICOTINE 21 MG/24 HOURS TOPICAL PATCH TD SCH (10:57)
[2023-05-03] MEDS ORDERED: MELATONIN 5 MG TABLETS PO SCH (22:00)
[2023-05-03] MEDS: OLANZapine 5 MG TABLET PO SCH (22:51)
[2023-05-03] MEDS: THIAMINE HCL 100 MG TABLET (FP) PO SCH (22:51)
[2023-05-04] MEDS ORDERED: methaDONE HCL 10 MG TABLET (FOR DETOX USE ONLY) PO ONE (08:50)
[2023-05-04] MEDS: cloNIDine HCL 0.1 MG TABLET PO PRN (09:25)
[2023-05-04] MEDS: METHOCARBAMOL 500 MG TABLET PO PRN (09:25)
[2023-05-04] MEDS: PRENATAL VITAMINS W/ FOLIC ACID TABLET (FP) PO SCH (09:25)
[2023-05-04] MEDS: NICOTINE 21 MG/24 HOURS TOPICAL PATCH TD SCH (09:28)
[2023-05-04 12:15] LABS: HEMATOCRIT 45.2 % (35.4-49); HEMOGLOBIN 14.8 GM/dL (11.7-16.9); MCH 30.9 pg (25.7-33.7); MCHC 32.7 g/dl (32.0-35.9); MEAN CELL VOLUME 94.3 fl (80-96); MEAN PLT VOLUME 8.9 fl (7.5-11.1); PLATELET COUNT 248 10^3/uL (134-434); RBC 4.79 M/mm3 (4.00-5.60); RDW 13.7 % (11.9-15.9); WHITE BLOOD COUNT 5.9 K/mm3 (4.0-10.0)
[2023-05-04 12:22] LABS: POTASSIUM 3.8 mmol/L (3.5-5.1)
[2023-05-04 12:56] LABS: CALCIUM 8.8 mg/dL (8.5-10.1)
[2023-05-04 12:57] LABS: ALBUMIN 3.3 g/dl (3.4-5.0)
[2023-05-04 12:59] LABS: BLOOD UREA NITROGEN 6.5 mg/dL (7-18)
[2023-05-04 13:00] LABS: CREATININE 0.7 mg/dL (0.55-1.3)
[2023-05-04 13:02] LABS: BILIRUBIN,TOTAL 0.3 mg/dL (0.2-1); TOT PROT 6.3 g/dl (6.4-8.2)
[2023-05-04] MEDS: THIAMINE HCL 100 MG TABLET (FP) PO SCH (22:22)
[2023-05-04] MEDS: OLANZapine 5 MG TABLET PO SCH (22:22)
[2023-05-04] MEDS: SUVOREXANT 10 MG TABLET PO PRN (22:24)
[2023-05-05] MEDS: cloNIDine HCL 0.1 MG TABLET PO PRN (10:08)
[2023-05-05] MEDS: amLODIPine BESYLATE 5 MG TABLET (FP) PO SCH (10:09)
[2023-05-05] MEDS: NICOTINE 21 MG/24 HOURS TOPICAL PATCH TD SCH (10:10)
[2023-05-05] MEDS: PRENATAL VITAMINS W/ FOLIC ACID TABLET (FP) PO SCH (10:26)
[2023-05-05] MEDS: SUVOREXANT 10 MG TABLET PO PRN (22:41)
[2023-05-05] MEDS: METHOCARBAMOL 500 MG TABLET PO PRN (22:41)
[2023-05-05] MEDS: OLANZapine 5 MG TABLET PO SCH (22:41)
[2023-05-05] MEDS: THIAMINE HCL 100 MG TABLET (FP) PO SCH (22:41)
[2023-05-06] MEDS ORDERED: methaDONE HCL 10 MG TABLET (FOR DETOX USE ONLY) PO ONE (10:00)
[2023-05-06] MEDS: METHOCARBAMOL 500 MG TABLET PO PRN ×2 (10:39→22:48)
[2023-05-06] MEDS: PRENATAL VITAMINS W/ FOLIC ACID TABLET (FP) PO SCH (10:39)
[2023-05-06] MEDS: cloNIDine HCL 0.1 MG TABLET PO PRN (10:40)
[2023-05-06] MEDS: amLODIPine BESYLATE 5 MG TABLET (FP) PO SCH (10:40)
[2023-05-06] MEDS: NICOTINE 21 MG/24 HOURS TOPICAL PATCH TD SCH (10:41)
[2023-05-06] MEDS: OLANZapine 5 MG TABLET PO SCH (22:48)
[2023-05-06] MEDS: THIAMINE HCL 100 MG TABLET (FP) PO SCH (22:48)
[2023-05-06] MEDS: SUVOREXANT 10 MG TABLET PO PRN (22:50)
[2023-05-07] MEDS: PRENATAL VITAMINS W/ FOLIC ACID TABLET (FP) PO SCH (10:32)
[2023-05-07] MEDS: amLODIPine BESYLATE 5 MG TABLET (FP) PO SCH (10:34)
[2023-05-07] MEDS: METHOCARBAMOL 500 MG TABLET PO PRN ×2 (10:34→22:36)
[2023-05-07] MEDS: NICOTINE 21 MG/24 HOURS TOPICAL PATCH TD SCH (10:36)
[2023-05-07] MEDS: THIAMINE HCL 100 MG TABLET (FP) PO SCH (22:36)
[2023-05-07] MEDS: OLANZapine 5 MG TABLET PO SCH (22:36)
[2023-05-07] MEDS: SUVOREXANT 10 MG TABLET PO PRN (22:37)
[2023-05-08] MEDS ORDERED: methaDONE HCL 10 MG TABLET (FOR DETOX USE ONLY) PO ONE (10:00)
[2023-05-08] MEDS: PRENATAL VITAMINS W/ FOLIC ACID TABLET (FP) PO SCH (10:22)
[2023-05-08] MEDS: amLODIPine BESYLATE 5 MG TABLET (FP) PO SCH (10:23)
[2023-05-08] MEDS: METHOCARBAMOL 500 MG TABLET PO PRN (10:24)
[2023-05-08] MEDS: NICOTINE 21 MG/24 HOURS TOPICAL PATCH TD SCH (10:26)
[2023-05-08] MEDS: THIAMINE HCL 100 MG TABLET (FP) PO SCH (22:19)
[2023-05-08] MEDS: OLANZapine 5 MG TABLET PO SCH (22:19)
[2023-05-08] MEDS: SUVOREXANT 10 MG TABLET PO PRN (22:19)
[2023-05-09 09:39] VITALS: BP 111/75; PULSE 100; RESP 17; TEMP 96.9
[2023-05-09] MEDS: PRENATAL VITAMINS W/ FOLIC ACID TABLET (FP) PO SCH (09:56)
[2023-05-09] MEDS: amLODIPine BESYLATE 5 MG TABLET (FP) PO SCH (09:56)
[2023-05-09] MEDS: NICOTINE 21 MG/24 HOURS TOPICAL PATCH TD SCH (09:57)
== END 2023-05-09 14:15 | disposition other institution (70) | DRG 773 ==
LOC: YASAS 21:37 → Y6N 05-03 09:28
PROVIDERS: ADMIT Allergy & Immunology; ATTEND Surgery
PROC: HZ2ZZZZ Detoxification Services for Substance Abuse Treatment (ICD-10-PCS; principal; 2023-05-03)
DX: F11.23 Opioid dependence with withdrawal (principal); F14.20 Cocaine dependence, uncomplicated; F12.20 Cannabis dependence, uncomplicated; F17.213 Nicotine dependence, cigarettes, with withdrawal; F25.1 Schizoaffective disorder, depressive type; F19.282 Other psychoactive substance dependence with psychoactive substance-induced sleep disorder; I10 Essential (primary) hypertension; R63.4 Abnormal weight loss; Z68.21 Body mass index [BMI] 21.0-21.9, adult; Z86.69 Personal history of other diseases of the nervous system and sense organs; Z59.02 Unsheltered homelessness; Z56.0 Unemployment, unspecified
CPT/HCPCS: 36415; 80053; 83036; 85027; 86780; 87635; 87811; 93005; 93010

== ENCOUNTER 2023-06-01 20:27 | Inpatient (IN) | payer OTHER ==
[2023-06-01 21:20] VITALS: BMI 20.3
[2023-06-01] MEDS ORDERED: NICOTINE POLACRILEX 2 MG GUM BUC PRN (23:06)
[2023-06-01] MEDS ORDERED: POLYETHYLENE GLYCOL (HEALTHYLAX) 3350 17 GM PACKET PO PRN (23:06)
[2023-06-01] MEDS ORDERED: DICYCLOMINE HCL 10 MG CAPSULE PO PRN (23:06)
[2023-06-01] MEDS ORDERED: NALOXONE HCL (KLOXXADO) 8 MG SPRAY NS PRN (23:06)
[2023-06-01] MEDS ORDERED: ACETAMINOPHEN 325 MG TABLET (FP) PO PRN (23:06)
[2023-06-01] MEDS ORDERED: P-EPHED 60MG/TRIPROLIDI 2.5MG TABLET PO PRN (23:06)
[2023-06-01] MEDS ORDERED: ONDANSETRON *ODT* 4 MG TABLET SL PRN (23:06)
[2023-06-01] MEDS ORDERED: LOPERAMIDE HCL 2 MG CAPSULE PO PRN (23:06)
[2023-06-01] MEDS ORDERED: BENZONATATE 200 MG CAPSULE PO PRN (23:06)
[2023-06-01] MEDS ORDERED: BISMUTH SUBSALICYLATE 524 MG/30 ML PO PRN (23:06)
[2023-06-01] MEDS ORDERED: IBUPROFEN 400 MG TABLET (FP) PO PRN (23:06)
[2023-06-01] MEDS ORDERED: NALOXONE HCL 0.4 MG/ML VIAL IM PRN (23:06)
[2023-06-01] MEDS ORDERED: MAGNESIUM HYDROX 2400MG/30ML ORAL SUSPENSION 30 ML CUP PO PRN (23:06)
[2023-06-01] MEDS ORDERED: guaiFENesin 600 MG TABLET.ER (FP) PO PRN (23:06)
[2023-06-01] MEDS ORDERED: IBUPROFEN 600 MG TABLET (FP) PO PRN (23:06)
[2023-06-01] MEDS ORDERED: MAG HYDROX/AL HYDROX/SIMETH 30 ML UNIT-DOSE CUP PO PRN (23:06)
[2023-06-01] MEDS ORDERED: BENZOCAINE/MENTHOL (CHLORASEPTIC ) LOZENGE MM PRN (23:06)
[2023-06-02] MEDS ORDERED: diazePAM 5 MG TABLET PO PRN (10:28)
[2023-06-02] MEDS: PRENATAL VITAMINS W/ FOLIC ACID TABLET (FP) PO SCH (10:33)
[2023-06-02] MEDS: diazePAM 5 MG TABLET PO SCH ×3 (11:19→22:32)
[2023-06-02 11:56] LABS: HEMATOCRIT 42.2 % (35.4-49); HEMOGLOBIN 13.8 GM/dL (11.7-16.9); MCH 30.9 pg (25.7-33.7); MCHC 32.6 g/dl (32.0-35.9); MEAN CELL VOLUME 94.8 fl (80-96); MEAN PLT VOLUME 8.5 fl (7.5-11.1); PLATELET COUNT 271 10^3/uL (134-434); RBC 4.45 M/mm3 (4.00-5.60); RDW 13.8 % (11.9-15.9)
[2023-06-02 12:00] LABS: POTASSIUM 4.2 mmol/L (3.5-5.1); SODIUM 142 mmol/L (136-145)
[2023-06-02 12:07] LABS: CALCIUM 8.4 mg/dL (8.5-10.1)
[2023-06-02 12:08] LABS: ALBUMIN 3.2 g/dl (3.4-5.0); BLOOD UREA NITROGEN 14.4 mg/dL (7-18); CO2 29 mmol/L (21-32); GLUCOSE,RANDOM 102 mg/dL (74-106)
[2023-06-02 12:11] LABS: CREATININE 0.7 mg/dL (0.55-1.3); SGOT/AST 13 U/L (15-37); SGPT/ALT 21 U/L (13-61)
[2023-06-02 12:13] LABS: BILIRUBIN,TOTAL 0.4 mg/dL (0.2-1); TOT PROT 5.8 g/dl (6.4-8.2)
[2023-06-02 12:14] LABS: ALK PHOS 100 U/L (45-117)
[2023-06-02 12:29] LABS: ANION GAP 7 MMOL/L (8-16); CHLORIDE 106 mmol/L (98-107)
[2023-06-02] MEDS ORDERED: cloNIDine HCL 0.1 MG TABLET PO PRN (16:52)
[2023-06-02] MEDS: amLODIPine BESYLATE 5 MG TABLET (FP) PO SCH (18:41)
[2023-06-02] MEDS: MELATONIN 5 MG TABLETS PO SCH (22:32)
[2023-06-02] MEDS: METHOCARBAMOL 500 MG TABLET PO PRN (22:32)
[2023-06-02] MEDS: hydrOXYzine PAMOATE 25 MG CAPSULE (FP) PO PRN (22:32)
[2023-06-02] MEDS: THIAMINE HCL 100 MG TABLET (FP) PO SCH (22:32)
[2023-06-03] MEDS: diazePAM 5 MG TABLET PO SCH ×4 (05:28→22:58)
[2023-06-03] MEDS: amLODIPine BESYLATE 5 MG TABLET (FP) PO SCH (10:21)
[2023-06-03] MEDS: OLANZapine 5 MG TABLET PO SCH (10:21)
[2023-06-03] MEDS: PRENATAL VITAMINS W/ FOLIC ACID TABLET (FP) PO SCH (10:22)
[2023-06-03] MEDS: THIAMINE HCL 100 MG TABLET (FP) PO SCH (22:58)
[2023-06-03] MEDS: MELATONIN 5 MG TABLETS PO SCH (22:58)
[2023-06-04] MEDS: diazePAM 5 MG TABLET PO SCH ×3 (05:50→22:22)
[2023-06-04] MEDS: OLANZapine 5 MG TABLET PO SCH (10:19)
[2023-06-04] MEDS: PRENATAL VITAMINS W/ FOLIC ACID TABLET (FP) PO SCH (10:19)
[2023-06-04] MEDS: amLODIPine BESYLATE 5 MG TABLET (FP) PO SCH (10:19)
[2023-06-04] MEDS: MELATONIN 5 MG TABLETS PO SCH (22:18)
[2023-06-04] MEDS: METHOCARBAMOL 500 MG TABLET PO PRN (22:21)
[2023-06-04] MEDS: hydrOXYzine PAMOATE 25 MG CAPSULE (FP) PO PRN (22:21)
[2023-06-04] MEDS: THIAMINE HCL 100 MG TABLET (FP) PO SCH (22:24)
[2023-06-05] MEDS: diazePAM 5 MG TABLET PO SCH ×2 (05:56→17:50)
[2023-06-05] MEDS: OLANZapine 5 MG TABLET PO SCH (10:24)
[2023-06-05] MEDS: PRENATAL VITAMINS W/ FOLIC ACID TABLET (FP) PO SCH (10:24)
[2023-06-05] MEDS: amLODIPine BESYLATE 5 MG TABLET (FP) PO SCH (10:24)
[2023-06-05] MEDS ORDERED: amLODIPine BESYLATE 5 MG TABLET (FP) PO ONE (13:43)
[2023-06-05 21:35] VITALS: RESP 18
[2023-06-06] MEDS: MELATONIN 5 MG TABLETS PO SCH (00:06)
[2023-06-06] MEDS: THIAMINE HCL 100 MG TABLET (FP) PO SCH (00:06)
[2023-06-06] MEDS ORDERED: amLODIPine BESYLATE 10 MG TABLET (FP) PO SCH (06:00)
[2023-06-06] MEDS ORDERED: diazePAM 5 MG TABLET PO ONE (06:00)
[2023-06-06] MEDS: hydrOXYzine PAMOATE 25 MG CAPSULE (FP) PO PRN (06:19)
[2023-06-06] MEDS: OLANZapine 5 MG TABLET PO SCH (09:39)
[2023-06-06] MEDS: PRENATAL VITAMINS W/ FOLIC ACID TABLET (FP) PO SCH (09:40)
[2023-06-06 12:33] VITALS: BP 131/78; PULSE 100; TEMP 97.6
== END 2023-06-06 13:38 | disposition other institution (70) | DRG 773 ==
LOC: YASAS 20:27 → Y3N 06-02 01:10
PROVIDERS: ADMIT Allergy & Immunology; ATTEND Surgery
PROC: HZ2ZZZZ Detoxification Services for Substance Abuse Treatment (ICD-10-PCS; principal; 2023-06-02)
DX: F11.23 Opioid dependence with withdrawal (principal); F10.230 Alcohol dependence with withdrawal, uncomplicated; F14.20 Cocaine dependence, uncomplicated; F12.20 Cannabis dependence, uncomplicated; F17.210 Nicotine dependence, cigarettes, uncomplicated; F31.9 Bipolar disorder, unspecified; F25.1 Schizoaffective disorder, depressive type; I10 Essential (primary) hypertension; Z86.69 Personal history of other diseases of the nervous system and sense organs
CPT/HCPCS: 36415; 80053; 80307; 85027; 86780; 87635; 87811

== ENCOUNTER 2023-06-06 13:49 | Inpatient (IN) | payer OTHER ==
[2023-06-06 14:11] VITALS: RESP 18
[2023-06-06] MEDS ORDERED: ACETAMINOPHEN 325 MG TABLET (FP) PO PRN (15:00)
[2023-06-06] MEDS ORDERED: NICOTINE POLACRILEX 4 MG GUM BUC PRN (15:00)
[2023-06-06] MEDS ORDERED: LOPERAMIDE HCL 2 MG CAPSULE PO PRN (15:00)
[2023-06-06] MEDS ORDERED: BENZOCAINE/MENTHOL (CHLORASEPTIC ) LOZENGE MM PRN (15:00)
[2023-06-06] MEDS ORDERED: MAGNESIUM HYDROX 2400MG/30ML ORAL SUSPENSION 30 ML CUP PO PRN (15:00)
[2023-06-06] MEDS ORDERED: COLLOIDAL OATMEAL 1 BAR EACH TP PRN (15:00)
[2023-06-06] MEDS ORDERED: NICOTINE 14 MG/24 HOURS TOPICAL PATCH TD PRN (15:00)
[2023-06-06] MEDS ORDERED: IBUPROFEN 400 MG TABLET (FP) PO PRN (15:00)
[2023-06-06] MEDS ORDERED: guaiFENesin 600 MG TABLET.ER (FP) PO PRN (15:00)
[2023-06-06] MEDS ORDERED: METHOCARBAMOL 500 MG TABLET PO PRN (15:00)
[2023-06-06] MEDS ORDERED: MAG HYDROX/AL HYDROX/SIMETH 30 ML UNIT-DOSE CUP PO PRN (15:00)
[2023-06-06] MEDS ORDERED: BENZONATATE 200 MG CAPSULE PO PRN (15:00)
[2023-06-06] MEDS ORDERED: NALOXONE HCL (KLOXXADO) 8 MG SPRAY NS PRN (15:00)
[2023-06-06] MEDS ORDERED: POLYETHYLENE GLYCOL (HEALTHYLAX) 3350 17 GM PACKET PO PRN (15:00)
[2023-06-06] MEDS ORDERED: AMMONIUM LACTATE 12% LOTION 225 GM BOTTLE TP PRN (15:00)
[2023-06-06] MEDS ORDERED: NALOXONE HCL 0.4 MG/ML VIAL IVPUSH PRN (15:00)
[2023-06-06] MEDS: THIAMINE HCL 100 MG TABLET (FP) PO SCH (21:41)
[2023-06-06] MEDS: MELATONIN 5 MG TABLETS PO SCH (21:41)
[2023-06-07] MEDS: PRENATAL VITAMINS W/ FOLIC ACID TABLET (FP) PO SCH (10:03)
[2023-06-07] MEDS: amLODIPine BESYLATE 10 MG TABLET (FP) PO SCH (10:04)
[2023-06-07] MEDS: OLANZapine 5 MG TABLET PO SCH (10:04)
[2023-06-07] MEDS: THIAMINE HCL 100 MG TABLET (FP) PO SCH (21:15)
[2023-06-07] MEDS: MELATONIN 5 MG TABLETS PO SCH (21:15)
[2023-06-07] MEDS: IBUPROFEN 600 MG TABLET (FP) PO PRN (21:16)
[2023-06-07] MEDS: hydrOXYzine PAMOATE 25 MG CAPSULE (FP) PO PRN (21:16)
[2023-06-08] MEDS: amLODIPine BESYLATE 10 MG TABLET (FP) PO SCH (09:39)
[2023-06-08] MEDS: PRENATAL VITAMINS W/ FOLIC ACID TABLET (FP) PO SCH (09:40)
[2023-06-08] MEDS: OLANZapine 5 MG TABLET PO SCH (09:40)
[2023-06-08] MEDS: IBUPROFEN 600 MG TABLET (FP) PO PRN (18:47)
[2023-06-08] MEDS: MELATONIN 5 MG TABLETS PO SCH (21:21)
[2023-06-08] MEDS: THIAMINE HCL 100 MG TABLET (FP) PO SCH (21:21)
[2023-06-08] MEDS: hydrOXYzine PAMOATE 25 MG CAPSULE (FP) PO PRN (21:22)
[2023-06-09 07:17] VITALS: BP 121/76; PULSE 100; TEMP 97.9
[2023-06-09] MEDS: OLANZapine 5 MG TABLET PO SCH (10:29)
[2023-06-09] MEDS: PRENATAL VITAMINS W/ FOLIC ACID TABLET (FP) PO SCH (10:29)
[2023-06-09] MEDS: amLODIPine BESYLATE 10 MG TABLET (FP) PO SCH (10:29)
[2023-06-09] MEDS: IBUPROFEN 600 MG TABLET (FP) PO PRN (10:31)
== END 2023-06-09 17:15 | disposition left against medical advice (07) | DRG 770 ==
LOC: YASAS 13:49 → Y5N 13:51
PROVIDERS: ADMIT Allergy & Immunology; ATTEND Psychiatry & Neurology Pain Medicine
PROC: HZ42ZZZ Group Counseling for Substance Abuse Treatment, Cognitive-Behavioral (ICD-10-PCS; principal; 2023-06-06)
DX: F10.20 Alcohol dependence, uncomplicated (principal); F14.20 Cocaine dependence, uncomplicated; F12.20 Cannabis dependence, uncomplicated; F17.210 Nicotine dependence, cigarettes, uncomplicated; F20.9 Schizophrenia, unspecified; F31.9 Bipolar disorder, unspecified; I10 Essential (primary) hypertension; Z59.01 Sheltered homelessness
CPT/HCPCS: 36415; 82140; 86803

== ENCOUNTER 2023-07-16 10:34 | Inpatient (IN) | payer OTHER ==
[2023-07-16 11:11] VITALS: BMI 20.3
[2023-07-16] MEDS ORDERED: ACETAMINOPHEN 325 MG TABLET (FP) PO PRN (13:15)
[2023-07-16] MEDS ORDERED: LOPERAMIDE HCL 2 MG CAPSULE PO PRN (13:15)
[2023-07-16] MEDS ORDERED: NALOXONE HCL (KLOXXADO) 8 MG SPRAY NS PRN (13:15)
[2023-07-16] MEDS ORDERED: METHOCARBAMOL 500 MG TABLET PO PRN (13:15)
[2023-07-16] MEDS ORDERED: BENZOCAINE/MENTHOL (CHLORASEPTIC ) LOZENGE MM PRN (13:15)
[2023-07-16] MEDS ORDERED: BISMUTH SUBSALICYLATE 524 MG/30 ML PO PRN (13:15)
[2023-07-16] MEDS ORDERED: ONDANSETRON *ODT* 4 MG TABLET SL PRN (13:15)
[2023-07-16] MEDS ORDERED: POLYETHYLENE GLYCOL (HEALTHYLAX) 3350 17 GM PACKET PO PRN (13:15)
[2023-07-16] MEDS ORDERED: MAGNESIUM HYDROX 2400MG/30ML ORAL SUSPENSION 30 ML CUP PO PRN (13:15)
[2023-07-16] MEDS ORDERED: IBUPROFEN 400 MG TABLET (FP) PO PRN (13:15)
[2023-07-16] MEDS ORDERED: NALOXONE HCL 0.4 MG/ML VIAL IM PRN (13:15)
[2023-07-16] MEDS ORDERED: MAG HYDROX/AL HYDROX/SIMETH 30 ML UNIT-DOSE CUP PO PRN (13:15)
[2023-07-16] MEDS ORDERED: guaiFENesin 600 MG TABLET.ER (FP) PO PRN (13:15)
[2023-07-16] MEDS ORDERED: chlordiazePOXIDE HCL 25 MG CAPSULE PO PRN (13:15)
[2023-07-16] MEDS ORDERED: BENZONATATE 200 MG CAPSULE PO PRN (13:15)
[2023-07-16] MEDS ORDERED: IBUPROFEN 600 MG TABLET (FP) PO PRN (13:15)
[2023-07-16] MEDS ORDERED: DICYCLOMINE HCL 10 MG CAPSULE PO PRN (13:15)
[2023-07-16] MEDS: chlordiazePOXIDE HCL 25 MG CAPSULE PO SCH ×2 (17:09→22:29)
[2023-07-16] MEDS: THIAMINE HCL 100 MG TABLET (FP) PO SCH (22:29)
[2023-07-16] MEDS: MELATONIN 5 MG TABLETS PO SCH (22:29)
[2023-07-17] MEDS: chlordiazePOXIDE HCL 25 MG CAPSULE PO SCH ×4 (05:54→23:34)
[2023-07-17] MEDS: hydrOXYzine PAMOATE 25 MG CAPSULE (FP) PO PRN (10:12)
[2023-07-17] MEDS: amLODIPine BESYLATE 5 MG TABLET (FP) PO SCH (10:12)
[2023-07-17] MEDS: PRENATAL VITAMINS W/ FOLIC ACID TABLET (FP) PO SCH (10:13)
[2023-07-17 10:27] LABS: HEMATOCRIT 47.1 % (35.4-49); HEMOGLOBIN 15.8 GM/dL (11.7-16.9); MCH 31.4 pg (25.7-33.7); MCHC 33.5 g/dl (32.0-35.9); MEAN CELL VOLUME 93.7 fl (80-96); MEAN PLT VOLUME 8.2 fl (7.5-11.1); PLATELET COUNT 353 10^3/uL (134-434); RBC 5.03 M/mm3 (4.00-5.60); RDW 14.1 % (11.9-15.9); WHITE BLOOD COUNT 7.3 K/mm3 (4.0-10.0)
[2023-07-17 11:25] LABS: POTASSIUM 4.2 mmol/L (3.5-5.1)
[2023-07-17 11:27] LABS: CALCIUM 8.8 mg/dL (8.5-10.1)
[2023-07-17 11:28] LABS: ALBUMIN 3.4 g/dl (3.4-5.0); BLOOD UREA NITROGEN 16.2 mg/dL (7-18)
[2023-07-17 11:31] LABS: CREATININE 0.7 mg/dL (0.55-1.3)
[2023-07-17 11:32] LABS: BILIRUBIN,TOTAL 0.4 mg/dL (0.2-1)
[2023-07-17] MEDS: MELATONIN 5 MG TABLETS PO SCH (23:33)
[2023-07-17] MEDS: THIAMINE HCL 100 MG TABLET (FP) PO SCH (23:33)
[2023-07-18] MEDS: chlordiazePOXIDE HCL 25 MG CAPSULE PO SCH ×4 (06:17→22:32)
[2023-07-18] MEDS: amLODIPine BESYLATE 5 MG TABLET (FP) PO SCH (10:12)
[2023-07-18] MEDS: PRENATAL VITAMINS W/ FOLIC ACID TABLET (FP) PO SCH (10:12)
[2023-07-18] MEDS: hydrOXYzine PAMOATE 25 MG CAPSULE (FP) PO PRN ×2 (10:13→21:14)
[2023-07-18] MEDS: MELATONIN 5 MG TABLETS PO SCH (22:30)
[2023-07-18] MEDS: THIAMINE HCL 100 MG TABLET (FP) PO SCH (22:30)
[2023-07-19] MEDS ORDERED: chlordiazePOXIDE HCL 10 MG CAPSULE PO PRN
[2023-07-19] MEDS: chlordiazePOXIDE HCL 10 MG CAPSULE PO SCH ×3 (05:15→17:14)
[2023-07-19] MEDS ORDERED: LISINOPRIL 5 MG TABLET PO SCH (10:00)
[2023-07-19] MEDS: PRENATAL VITAMINS W/ FOLIC ACID TABLET (FP) PO SCH (10:28)
[2023-07-19] MEDS: amLODIPine BESYLATE 5 MG TABLET (FP) PO SCH (10:29)
[2023-07-19 12:50] VITALS: RESP 17
[2023-07-19 18:11] VITALS: BP 145/85; PULSE 106; TEMP 97.8
[2023-07-20] MEDS ORDERED: chlordiazePOXIDE HCL 10 MG CAPSULE PO SCH (05:00)
[2023-07-21] MEDS ORDERED: chlordiazePOXIDE HCL 10 MG CAPSULE PO ONE (05:00)
== END 2023-07-19 18:03 | disposition home or self-care (01) | DRG 770 ==
LOC: SUATTDRO 10:34 → YASAS 10:34 → Y6N 12:46
PROVIDERS: ADMIT Allergy & Immunology; ATTEND Surgery
PROC: HZ2ZZZZ Detoxification Services for Substance Abuse Treatment (ICD-10-PCS; principal; 2023-07-16)
DX: F10.230 Alcohol dependence with withdrawal, uncomplicated (principal); F14.20 Cocaine dependence, uncomplicated; F12.10 Cannabis abuse, uncomplicated; F25.1 Schizoaffective disorder, depressive type; F31.9 Bipolar disorder, unspecified; I10 Essential (primary) hypertension
CPT/HCPCS: 36415; 80053; 85027; 86780; 87635; 87811

== ENCOUNTER 2023-08-18 18:41 | Inpatient (IN) | payer OTHER ==
[2023-08-18 22:46] VITALS: BMI 19.5
[2023-08-18] MEDS ORDERED: LOPERAMIDE HCL 2 MG CAPSULE PO PRN (23:50)
[2023-08-18] MEDS ORDERED: IBUPROFEN 400 MG TABLET (FP) PO PRN (23:50)
[2023-08-18] MEDS ORDERED: BENZONATATE 200 MG CAPSULE PO PRN (23:50)
[2023-08-18] MEDS ORDERED: NALOXONE HCL 0.4 MG/ML VIAL IM PRN (23:50)
[2023-08-18] MEDS ORDERED: ACETAMINOPHEN 325 MG TABLET (FP) PO PRN (23:50)
[2023-08-18] MEDS ORDERED: ONDANSETRON *ODT* 4 MG TABLET SL PRN (23:50)
[2023-08-18] MEDS ORDERED: DICYCLOMINE HCL 10 MG CAPSULE PO PRN (23:50)
[2023-08-18] MEDS ORDERED: NALOXONE HCL (KLOXXADO) 8 MG SPRAY NS PRN (23:50)
[2023-08-18] MEDS ORDERED: BISMUTH SUBSALICYLATE 524 MG/30 ML PO PRN (23:50)
[2023-08-18] MEDS ORDERED: METHOCARBAMOL 500 MG TABLET PO PRN (23:50)
[2023-08-18] MEDS ORDERED: MAGNESIUM HYDROX 2400MG/30ML ORAL SUSPENSION 30 ML CUP PO PRN (23:50)
[2023-08-18] MEDS ORDERED: P-EPHED 60MG/TRIPROLIDI 2.5MG TABLET PO PRN (23:50)
[2023-08-18] MEDS ORDERED: NICOTINE POLACRILEX 2 MG GUM BUC PRN (23:50)
[2023-08-18] MEDS ORDERED: guaiFENesin 600 MG TABLET.ER (FP) PO PRN (23:50)
[2023-08-18] MEDS ORDERED: hydrOXYzine PAMOATE 25 MG CAPSULE (FP) PO PRN (23:50)
[2023-08-18] MEDS ORDERED: BENZOCAINE/MENTHOL (CHLORASEPTIC ) LOZENGE MM PRN (23:50)
[2023-08-18] MEDS ORDERED: MAG HYDROX/AL HYDROX/SIMETH 30 ML UNIT-DOSE CUP PO PRN (23:50)
[2023-08-18] MEDS ORDERED: IBUPROFEN 600 MG TABLET (FP) PO PRN (23:50)
[2023-08-18] MEDS ORDERED: POLYETHYLENE GLYCOL (HEALTHYLAX) 3350 17 GM PACKET PO PRN (23:50)
[2023-08-19] MEDS: PRENATAL VITAMINS W/ FOLIC ACID TABLET (FP) PO SCH (10:25)
[2023-08-19 12:09] LABS: HEMOGLOBIN 13.7 GM/dL (11.7-16.9); MCH 31.3 pg (25.7-33.7); MCHC 33.4 g/dl (32.0-35.9); MEAN CELL VOLUME 93.6 fl (80-96); MEAN PLT VOLUME 8.1 fl (7.5-11.1); PLATELET COUNT 299 10^3/uL (134-434); RBC 4.38 M/mm3 (4.00-5.60); RDW 13.6 % (11.9-15.9); WHITE BLOOD COUNT 8.2 K/mm3 (4.0-10.0)
[2023-08-19 12:11] LABS: CHLORIDE 104 mmol/L (98-107)
[2023-08-19 12:17] LABS: BLOOD UREA NITROGEN 13.6 mg/dL (7-18); CALCIUM 8.3 mg/dL (8.5-10.1); CO2 29 mmol/L (21-32); GLUCOSE,RANDOM 96 mg/dL (74-106)
[2023-08-19 12:20] LABS: SGPT/ALT 16 U/L (13-61)
[2023-08-19 12:21] LABS: SGOT/AST 9 U/L (15-37); TOT PROT 5.9 g/dl (6.4-8.2)
[2023-08-19 12:22] LABS: ALK PHOS 109 U/L (45-117); BILIRUBIN,TOTAL 0.3 mg/dL (0.2-1)
[2023-08-19 12:27] LABS: ANION GAP 4 mmol/L (4-13); POTASSIUM 3.6 mmol/L (3.5-5.1); SODIUM 138 mmol/L (136-145)
[2023-08-19] MEDS ORDERED: propRANOLol HCL 10 MG TABLET PO ONE ×2 (17:59→19:30)
[2023-08-19] MEDS: MELATONIN 5 MG TABLETS PO SCH (22:09)
[2023-08-19] MEDS: OLANZapine 5 MG TABLET PO SCH (22:09)
[2023-08-19] MEDS: THIAMINE HCL 100 MG TABLET (FP) PO SCH (22:09)
[2023-08-20] MEDS: amLODIPine BESYLATE 10 MG TABLET (FP) PO SCH (10:28)
[2023-08-20] MEDS: PRENATAL VITAMINS W/ FOLIC ACID TABLET (FP) PO SCH (10:28)
[2023-08-20] MEDS: OLANZapine 5 MG TABLET PO SCH (22:33)
[2023-08-20] MEDS: MELATONIN 5 MG TABLETS PO SCH (22:34)
[2023-08-20] MEDS: THIAMINE HCL 100 MG TABLET (FP) PO SCH (22:34)
[2023-08-21 07:08] VITALS: RESP 16
[2023-08-21 10:13] VITALS: BP 149/81; PULSE 70; TEMP 97.8
[2023-08-21] MEDS: PRENATAL VITAMINS W/ FOLIC ACID TABLET (FP) PO SCH (10:45)
[2023-08-21] MEDS: amLODIPine BESYLATE 10 MG TABLET (FP) PO SCH (10:45)
== END 2023-08-21 12:10 | disposition home or self-care (01) | DRG 773 ==
LOC: YASAS 18:41 → Y3N 08-19 03:32
PROVIDERS: ADMIT Allergy & Immunology; ATTEND Surgery
PROC: HZ2ZZZZ Detoxification Services for Substance Abuse Treatment (ICD-10-PCS; principal; 2023-08-19)
DX: F11.20 Opioid dependence, uncomplicated (principal); F10.20 Alcohol dependence, uncomplicated; F14.10 Cocaine abuse, uncomplicated; F17.210 Nicotine dependence, cigarettes, uncomplicated; F25.1 Schizoaffective disorder, depressive type; I10 Essential (primary) hypertension
CPT/HCPCS: 36415; 80053; 80307; 85027; 86780; 87635; 87811

== ENCOUNTER 2023-09-26 13:22 | Inpatient (IN) | payer OTHER ==
[2023-09-26 13:54] VITALS: BMI 20.3
[2023-09-26] MEDS ORDERED: IBUPROFEN 400 MG TABLET (FP) PO PRN (14:46)
[2023-09-26] MEDS ORDERED: BENZOCAINE/MENTHOL (CHLORASEPTIC ) LOZENGE MM PRN (14:46)
[2023-09-26] MEDS ORDERED: MAGNESIUM HYDROX 2400MG/30ML ORAL SUSPENSION 30 ML CUP PO PRN (14:46)
[2023-09-26] MEDS ORDERED: NICOTINE POLACRILEX 2 MG GUM BUC PRN (14:46)
[2023-09-26] MEDS ORDERED: NALOXONE HCL (KLOXXADO) 8 MG SPRAY NS PRN (14:46)
[2023-09-26] MEDS ORDERED: guaiFENesin 600 MG TABLET.ER (FP) PO PRN (14:46)
[2023-09-26] MEDS ORDERED: BISMUTH SUBSALICYLATE 524 MG/30 ML PO PRN (14:46)
[2023-09-26] MEDS ORDERED: MAG HYDROX/AL HYDROX/SIMETH 30 ML UNIT-DOSE CUP PO PRN (14:46)
[2023-09-26] MEDS ORDERED: ACETAMINOPHEN 325 MG TABLET (FP) PO PRN (14:46)
[2023-09-26] MEDS ORDERED: BENZONATATE 200 MG CAPSULE PO PRN (14:46)
[2023-09-26] MEDS ORDERED: NALOXONE HCL 0.4 MG/ML VIAL IM PRN (14:46)
[2023-09-26] MEDS ORDERED: ONDANSETRON *ODT* 4 MG TABLET SL PRN (14:46)
[2023-09-26] MEDS ORDERED: POLYETHYLENE GLYCOL (HEALTHYLAX) 3350 17 GM PACKET PO PRN (14:46)
[2023-09-26] MEDS ORDERED: LOPERAMIDE HCL 2 MG CAPSULE PO PRN (14:46)
[2023-09-26] MEDS: IBUPROFEN 600 MG TABLET (FP) PO PRN (17:33)
[2023-09-26] MEDS: hydrOXYzine PAMOATE 25 MG CAPSULE (FP) PO PRN (17:33)
[2023-09-26] MEDS ORDERED: chlordiazePOXIDE HCL 25 MG CAPSULE PO PRN (21:42)
[2023-09-26] MEDS: chlordiazePOXIDE HCL 25 MG CAPSULE PO SCH (22:08)
[2023-09-26] MEDS: METHOCARBAMOL 500 MG TABLET PO PRN (22:09)
[2023-09-26] MEDS: THIAMINE HCL 100 MG TABLET (FP) PO SCH (22:09)
[2023-09-26] MEDS: MELATONIN 5 MG TABLETS PO SCH (22:09)
[2023-09-27] MEDS: chlordiazePOXIDE HCL 25 MG CAPSULE PO SCH ×4 (05:33→22:18)
[2023-09-27] MEDS: METHOCARBAMOL 500 MG TABLET PO PRN (07:08)
[2023-09-27] MEDS: hydrOXYzine PAMOATE 25 MG CAPSULE (FP) PO PRN (07:08)
[2023-09-27] MEDS: NICOTINE 14 MG/24 HOURS TOPICAL PATCH TD SCH (10:21)
[2023-09-27] MEDS: PRENATAL VITAMINS W/ FOLIC ACID TABLET (FP) PO SCH (10:21)
[2023-09-27 13:12] LABS: HEMATOCRIT 42.6 % (35.4-49); HEMOGLOBIN 14.3 GM/dL (11.7-16.9); MCH 31.1 pg (25.7-33.7); MCHC 33.5 g/dl (32.0-35.9); MEAN CELL VOLUME 92.9 fl (80-96); MEAN PLT VOLUME 8.2 fl (7.5-11.1); PLATELET COUNT 313 10^3/uL (134-434); RBC 4.58 M/mm3 (4.00-5.60); RDW 13.8 % (11.9-15.9); WHITE BLOOD COUNT 6.4 K/mm3 (4.0-10.0)
[2023-09-27 13:15] LABS: CHLORIDE 108 mmol/L (98-107); POTASSIUM 3.9 mmol/L (3.5-5.1); SODIUM 142 mmol/L (136-145)
[2023-09-27 13:16] LABS: CALCIUM 8.6 mg/dL (8.5-10.1)
[2023-09-27 13:17] LABS: ALBUMIN 2.9 g/dl (3.4-5.0); ANION GAP 5 mmol/L (4-13); BLOOD UREA NITROGEN 11.9 mg/dL (7-18); CO2 29 mmol/L (21-32)
[2023-09-27 13:20] LABS: CREATININE 0.9 mg/dL (0.55-1.3); SGOT/AST 10 U/L (15-37); SGPT/ALT 15 U/L (13-61)
[2023-09-27 13:21] LABS: GLUCOSE,RANDOM 113 mg/dL (74-106)
[2023-09-27 13:22] LABS: ALK PHOS 96 U/L (45-117); TOT PROT 5.9 g/dl (6.4-8.2)
[2023-09-27 13:25] LABS: BILIRUBIN,TOTAL 0.4 mg/dL (0.2-1)
[2023-09-27] MEDS: amLODIPine BESYLATE 10 MG TABLET (FP) PO SCH (14:44)
[2023-09-27] MEDS: THIAMINE HCL 100 MG TABLET (FP) PO SCH (22:18)
[2023-09-27] MEDS: MELATONIN 5 MG TABLETS PO SCH (22:18)
[2023-09-27] MEDS: OLANZapine 5 MG TABLET PO SCH (22:18)
[2023-09-27] MEDS: IBUPROFEN 600 MG TABLET (FP) PO PRN (22:19)
[2023-09-28] MEDS: chlordiazePOXIDE HCL 10 MG CAPSULE PO SCH ×4 (06:00→22:23)
[2023-09-28] MEDS: amLODIPine BESYLATE 10 MG TABLET (FP) PO SCH (10:33)
[2023-09-28] MEDS: PRENATAL VITAMINS W/ FOLIC ACID TABLET (FP) PO SCH (10:33)
[2023-09-28] MEDS: NICOTINE 14 MG/24 HOURS TOPICAL PATCH TD SCH (10:35)
[2023-09-28 21:15] VITALS: RESP 16
[2023-09-28] MEDS: THIAMINE HCL 100 MG TABLET (FP) PO SCH (22:24)
[2023-09-28] MEDS: MELATONIN 5 MG TABLETS PO SCH (22:24)
[2023-09-28] MEDS: OLANZapine 5 MG TABLET PO SCH (22:24)
[2023-09-29] MEDS ORDERED: chlordiazePOXIDE HCL 10 MG CAPSULE PO PRN
[2023-09-29] MEDS: chlordiazePOXIDE HCL 10 MG CAPSULE PO SCH ×2 (05:47→17:44)
[2023-09-29] MEDS: NICOTINE 14 MG/24 HOURS TOPICAL PATCH TD SCH (10:17)
[2023-09-29] MEDS: amLODIPine BESYLATE 10 MG TABLET (FP) PO SCH (10:18)
[2023-09-29] MEDS: PRENATAL VITAMINS W/ FOLIC ACID TABLET (FP) PO SCH (10:18)
[2023-09-29] MEDS: THIAMINE HCL 100 MG TABLET (FP) PO SCH (21:18)
[2023-09-29] MEDS: MELATONIN 5 MG TABLETS PO SCH (21:18)
[2023-09-29] MEDS: OLANZapine 5 MG TABLET PO SCH (21:18)
[2023-09-30] MEDS ORDERED: chlordiazePOXIDE HCL 10 MG CAPSULE PO ONE (05:00)
[2023-09-30] MEDS: NICOTINE 14 MG/24 HOURS TOPICAL PATCH TD SCH (10:19)
[2023-09-30] MEDS: PRENATAL VITAMINS W/ FOLIC ACID TABLET (FP) PO SCH (10:19)
[2023-09-30] MEDS: amLODIPine BESYLATE 10 MG TABLET (FP) PO SCH (10:19)
[2023-09-30 12:50] VITALS: BP 113/62; PULSE 106; TEMP 96.9
== END 2023-09-30 14:14 | disposition other institution (70) | DRG 774 ==
LOC: YASAS 13:22 → Y3N 15:46
PROVIDERS: ADMIT Allergy & Immunology; ATTEND Surgery
PROC: HZ2ZZZZ Detoxification Services for Substance Abuse Treatment (ICD-10-PCS; principal; 2023-09-26)
DX: F10.230 Alcohol dependence with withdrawal, uncomplicated (principal); F14.20 Cocaine dependence, uncomplicated; F12.20 Cannabis dependence, uncomplicated; F17.210 Nicotine dependence, cigarettes, uncomplicated; F25.9 Schizoaffective disorder, unspecified; F31.9 Bipolar disorder, unspecified; F41.9 Anxiety disorder, unspecified; I10 Essential (primary) hypertension
CPT/HCPCS: 36415; 80053; 80307; 85027; 86780; 87635; 87811

== ENCOUNTER 2023-09-30 14:20 | Inpatient (IN) | payer OTHER ==
[2023-09-30] MEDS ORDERED: LOPERAMIDE HCL 2 MG CAPSULE PO PRN (15:37)
[2023-09-30] MEDS ORDERED: BENZOCAINE/MENTHOL (CHLORASEPTIC ) LOZENGE MM PRN (15:37)
[2023-09-30] MEDS ORDERED: NALOXONE HCL 0.4 MG/ML VIAL IVPUSH PRN (15:37)
[2023-09-30] MEDS ORDERED: NICOTINE 14 MG/24 HOURS TOPICAL PATCH TD PRN (15:37)
[2023-09-30] MEDS ORDERED: MAG HYDROX/AL HYDROX/SIMETH 30 ML UNIT-DOSE CUP PO PRN (15:37)
[2023-09-30] MEDS ORDERED: METHOCARBAMOL 500 MG TABLET PO PRN (15:37)
[2023-09-30] MEDS ORDERED: COLLOIDAL OATMEAL 1 BAR EACH TP PRN (15:37)
[2023-09-30] MEDS ORDERED: IBUPROFEN 600 MG TABLET (FP) PO PRN (15:37)
[2023-09-30] MEDS ORDERED: NALOXONE HCL (KLOXXADO) 8 MG SPRAY NS PRN (15:37)
[2023-09-30] MEDS ORDERED: AMMONIUM LACTATE 12% LOTION 225 GM BOTTLE TP PRN (15:37)
[2023-09-30] MEDS ORDERED: guaiFENesin 600 MG TABLET.ER (FP) PO PRN (15:37)
[2023-09-30] MEDS ORDERED: BENZONATATE 200 MG CAPSULE PO PRN (15:37)
[2023-09-30] MEDS ORDERED: POLYETHYLENE GLYCOL (HEALTHYLAX) 3350 17 GM PACKET PO PRN (15:37)
[2023-09-30] MEDS ORDERED: MAGNESIUM HYDROX 2400MG/30ML ORAL SUSPENSION 30 ML CUP PO PRN (15:37)
[2023-09-30] MEDS ORDERED: ACETAMINOPHEN 325 MG TABLET (FP) PO PRN (15:37)
[2023-09-30] MEDS: MELATONIN 5 MG TABLETS PO SCH (21:15)
[2023-09-30] MEDS: THIAMINE HCL 100 MG TABLET (FP) PO SCH (21:15)
[2023-09-30] MEDS: OLANZapine 5 MG TABLET PO SCH (21:15)
[2023-09-30] MEDS: hydrOXYzine PAMOATE 25 MG CAPSULE (FP) PO PRN (21:16)
[2023-10-01] MEDS: amLODIPine BESYLATE 10 MG TABLET (FP) PO SCH (11:00)
[2023-10-01] MEDS: PRENATAL VITAMINS W/ FOLIC ACID TABLET (FP) PO SCH (11:00)
[2023-10-01] MEDS: MELATONIN 5 MG TABLETS PO SCH (21:31)
[2023-10-01] MEDS: THIAMINE HCL 100 MG TABLET (FP) PO SCH (21:31)
[2023-10-01] MEDS: hydrOXYzine PAMOATE 25 MG CAPSULE (FP) PO PRN (21:32)
[2023-10-01] MEDS: NICOTINE POLACRILEX 4 MG GUM BUC PRN (21:32)
[2023-10-01] MEDS: OLANZapine 5 MG TABLET PO SCH (21:32)
[2023-10-02] MEDS: amLODIPine BESYLATE 10 MG TABLET (FP) PO SCH (10:27)
[2023-10-02] MEDS: PRENATAL VITAMINS W/ FOLIC ACID TABLET (FP) PO SCH (10:27)
[2023-10-02] MEDS: hydrOXYzine PAMOATE 25 MG CAPSULE (FP) PO PRN (21:12)
[2023-10-02] MEDS: MELATONIN 5 MG TABLETS PO SCH (21:12)
[2023-10-02] MEDS: THIAMINE HCL 100 MG TABLET (FP) PO SCH (21:12)
[2023-10-02] MEDS: OLANZapine 5 MG TABLET PO SCH (21:12)
[2023-10-02] MEDS: IBUPROFEN 400 MG TABLET (FP) PO PRN (21:12)
[2023-10-03] MEDS: amLODIPine BESYLATE 10 MG TABLET (FP) PO SCH (10:21)
[2023-10-03] MEDS: PRENATAL VITAMINS W/ FOLIC ACID TABLET (FP) PO SCH (10:21)
[2023-10-03] MEDS: MELATONIN 5 MG TABLETS PO SCH (21:45)
[2023-10-03] MEDS: OLANZapine 5 MG TABLET PO SCH (21:45)
[2023-10-03] MEDS: THIAMINE HCL 100 MG TABLET (FP) PO SCH (21:46)
[2023-10-04] MEDS: amLODIPine BESYLATE 10 MG TABLET (FP) PO SCH (10:11)
[2023-10-04] MEDS: PRENATAL VITAMINS W/ FOLIC ACID TABLET (FP) PO SCH (10:11)
[2023-10-04] MEDS: OLANZapine 5 MG TABLET PO SCH (21:11)
[2023-10-04] MEDS: hydrOXYzine PAMOATE 25 MG CAPSULE (FP) PO PRN (21:11)
[2023-10-04] MEDS: IBUPROFEN 400 MG TABLET (FP) PO PRN (21:11)
[2023-10-04] MEDS: MELATONIN 5 MG TABLETS PO SCH (21:11)
[2023-10-04] MEDS: THIAMINE HCL 100 MG TABLET (FP) PO SCH (21:11)
[2023-10-05] MEDS: PRENATAL VITAMINS W/ FOLIC ACID TABLET (FP) PO SCH (09:49)
[2023-10-05] MEDS: amLODIPine BESYLATE 10 MG TABLET (FP) PO SCH (09:50)
[2023-10-05] MEDS ORDERED: NALTREXONE HCL 50 MG TABLET PO SCH (16:15)
[2023-10-05] MEDS: THIAMINE HCL 100 MG TABLET (FP) PO SCH (21:15)
[2023-10-05] MEDS: OLANZapine 5 MG TABLET PO SCH (21:15)
[2023-10-05] MEDS: LACTULOSE 20 GM/30 ML UDC (FOR ORAL USE ONLY) PO SCH (21:15)
[2023-10-05] MEDS: MELATONIN 5 MG TABLETS PO SCH (21:15)
[2023-10-06] MEDS: LACTULOSE 20 GM/30 ML UDC (FOR ORAL USE ONLY) PO SCH ×3 (06:44→21:06)
[2023-10-06] MEDS: amLODIPine BESYLATE 10 MG TABLET (FP) PO SCH (10:06)
[2023-10-06] MEDS: NALTREXONE HCL 50 MG TABLET PO SCH (10:06)
[2023-10-06] MEDS: PRENATAL VITAMINS W/ FOLIC ACID TABLET (FP) PO SCH (10:06)
[2023-10-06] MEDS: hydrOXYzine PAMOATE 25 MG CAPSULE (FP) PO PRN (21:06)
[2023-10-06] MEDS: MELATONIN 5 MG TABLETS PO SCH (21:06)
[2023-10-06] MEDS: THIAMINE HCL 100 MG TABLET (FP) PO SCH (21:06)
[2023-10-06] MEDS: OLANZapine 5 MG TABLET PO SCH (21:06)
[2023-10-06] MEDS: NICOTINE POLACRILEX 4 MG GUM BUC PRN (21:07)
[2023-10-07] MEDS: LACTULOSE 20 GM/30 ML UDC (FOR ORAL USE ONLY) PO SCH ×3 (06:37→21:36)
[2023-10-07] MEDS: PRENATAL VITAMINS W/ FOLIC ACID TABLET (FP) PO SCH (09:32)
[2023-10-07] MEDS: NALTREXONE HCL 50 MG TABLET PO SCH (09:33)
[2023-10-07] MEDS: amLODIPine BESYLATE 10 MG TABLET (FP) PO SCH (09:33)
[2023-10-07] MEDS: THIAMINE HCL 100 MG TABLET (FP) PO SCH (21:36)
[2023-10-07] MEDS: MELATONIN 5 MG TABLETS PO SCH (21:36)
[2023-10-07] MEDS: OLANZapine 5 MG TABLET PO SCH (21:36)
[2023-10-07] MEDS: hydrOXYzine PAMOATE 25 MG CAPSULE (FP) PO PRN (21:37)
[2023-10-08] MEDS: LACTULOSE 20 GM/30 ML UDC (FOR ORAL USE ONLY) PO SCH ×2 (06:53→13:03)
[2023-10-08 07:12] VITALS: RESP 18
[2023-10-08] MEDS: amLODIPine BESYLATE 10 MG TABLET (FP) PO SCH (10:12)
[2023-10-08] MEDS: PRENATAL VITAMINS W/ FOLIC ACID TABLET (FP) PO SCH (10:12)
[2023-10-08] MEDS: NALTREXONE HCL 50 MG TABLET PO SCH (10:12)
[2023-10-08 17:22] VITALS: BP 140/85; PULSE 99; TEMP 97.3
== END 2023-10-08 17:50 | disposition home or self-care (01) | DRG 772 ==
LOC: YASAS 14:20 → Y3W 14:21
PROVIDERS: ADMIT Allergy & Immunology; ATTEND Psychiatry & Neurology Pain Medicine
PROC: HZ42ZZZ Group Counseling for Substance Abuse Treatment, Cognitive-Behavioral (ICD-10-PCS; principal; 2023-09-30)
DX: F10.20 Alcohol dependence, uncomplicated (principal); F14.20 Cocaine dependence, uncomplicated; F12.20 Cannabis dependence, uncomplicated; F17.210 Nicotine dependence, cigarettes, uncomplicated; F31.9 Bipolar disorder, unspecified; F20.3 Undifferentiated schizophrenia; F41.9 Anxiety disorder, unspecified; E72.20 Disorder of urea cycle metabolism, unspecified; I10 Essential (primary) hypertension
CPT/HCPCS: 36415; 82140; 86803

== ENCOUNTER 2023-10-27 17:47 | Inpatient (IN) | payer OTHER ==
[2023-10-27 18:16] VITALS: BMI 20.5
[2023-10-27] MEDS ORDERED: ONDANSETRON *ODT* 4 MG TABLET SL PRN (19:52)
[2023-10-27] MEDS ORDERED: MAG HYDROX/AL HYDROX/SIMETH 30 ML UNIT-DOSE CUP PO PRN (19:52)
[2023-10-27] MEDS ORDERED: NALOXONE HCL (KLOXXADO) 8 MG SPRAY NS PRN (19:52)
[2023-10-27] MEDS ORDERED: guaiFENesin 600 MG TABLET.ER (FP) PO PRN (19:52)
[2023-10-27] MEDS ORDERED: IBUPROFEN 600 MG TABLET (FP) PO PRN (19:52)
[2023-10-27] MEDS ORDERED: MAGNESIUM HYDROX 2400MG/30ML ORAL SUSPENSION 30 ML CUP PO PRN (19:52)
[2023-10-27] MEDS ORDERED: BENZOCAINE/MENTHOL (CHLORASEPTIC ) LOZENGE MM PRN (19:52)
[2023-10-27] MEDS ORDERED: IBUPROFEN 400 MG TABLET (FP) PO PRN (19:52)
[2023-10-27] MEDS ORDERED: BISMUTH SUBSALICYLATE 524 MG/30 ML PO PRN (19:52)
[2023-10-27] MEDS ORDERED: DICYCLOMINE HCL 10 MG CAPSULE PO PRN (19:52)
[2023-10-27] MEDS ORDERED: NALOXONE HCL 0.4 MG/ML VIAL IM PRN (19:52)
[2023-10-27] MEDS ORDERED: POLYETHYLENE GLYCOL (HEALTHYLAX) 3350 17 GM PACKET PO PRN (19:52)
[2023-10-27] MEDS ORDERED: BENZONATATE 200 MG CAPSULE PO PRN (19:52)
[2023-10-27] MEDS ORDERED: METHOCARBAMOL 500 MG TABLET PO PRN (19:52)
[2023-10-27] MEDS ORDERED: P-EPHED 60MG/TRIPROLIDI 2.5MG TABLET PO PRN (19:52)
[2023-10-27] MEDS ORDERED: ACETAMINOPHEN 325 MG TABLET (FP) PO PRN (19:52)
[2023-10-27] MEDS ORDERED: hydrOXYzine PAMOATE 25 MG CAPSULE (FP) PO PRN (19:52)
[2023-10-27] MEDS ORDERED: LOPERAMIDE HCL 2 MG CAPSULE PO PRN (19:52)
[2023-10-27] MEDS ORDERED: NICOTINE POLACRILEX 2 MG LOZENGE BC PRN (19:52)
[2023-10-27] MEDS ORDERED: chlordiazePOXIDE HCL 25 MG CAPSULE PO PRN (20:01)
[2023-10-27] MEDS ORDERED: amLODIPine BESYLATE 5 MG TABLET (FP) ONE (20:17)
[2023-10-27] MEDS: amLODIPine BESYLATE 10 MG TABLET (FP) PO SCH (20:31)
[2023-10-27] MEDS: THIAMINE HCL 100 MG TABLET (FP) PO SCH (22:14)
[2023-10-27] MEDS: MELATONIN 5 MG TABLETS PO SCH (22:14)
[2023-10-27] MEDS: chlordiazePOXIDE HCL 25 MG CAPSULE PO SCH (22:14)
[2023-10-28] MEDS: chlordiazePOXIDE HCL 25 MG CAPSULE PO SCH ×2 (05:21→10:21)
[2023-10-28] MEDS: PRENATAL VITAMINS W/ FOLIC ACID TABLET (FP) PO SCH (10:20)
[2023-10-28] MEDS: amLODIPine BESYLATE 10 MG TABLET (FP) PO SCH (10:20)
[2023-10-28] MEDS ORDERED: diazePAM 5 MG TABLET PO PRN (11:19)
[2023-10-28] MEDS: diazePAM 5 MG TABLET PO SCH ×3 (11:39→22:21)
[2023-10-28] MEDS: THIAMINE HCL 100 MG TABLET (FP) PO SCH (22:21)
[2023-10-28] MEDS: MELATONIN 5 MG TABLETS PO SCH (22:22)
[2023-10-29] MEDS ORDERED: chlordiazePOXIDE HCL 10 MG CAPSULE PO SCH (05:00)
[2023-10-29] MEDS: diazePAM 5 MG TABLET PO SCH ×3 (05:17→22:07)
[2023-10-29] MEDS: amLODIPine BESYLATE 10 MG TABLET (FP) PO SCH (10:12)
[2023-10-29] MEDS: PRENATAL VITAMINS W/ FOLIC ACID TABLET (FP) PO SCH (10:12)
[2023-10-29] MEDS: MELATONIN 5 MG TABLETS PO SCH (22:07)
[2023-10-29] MEDS: THIAMINE HCL 100 MG TABLET (FP) PO SCH (22:07)
[2023-10-30] MEDS ORDERED: chlordiazePOXIDE HCL 10 MG CAPSULE PO PRN
[2023-10-30] MEDS ORDERED: chlordiazePOXIDE HCL 10 MG CAPSULE PO SCH (05:00)
[2023-10-30] MEDS: diazePAM 5 MG TABLET PO SCH ×2 (05:51→17:48)
[2023-10-30] MEDS: amLODIPine BESYLATE 10 MG TABLET (FP) PO SCH (10:15)
[2023-10-30] MEDS: PRENATAL VITAMINS W/ FOLIC ACID TABLET (FP) PO SCH (10:15)
[2023-10-30 10:17] LABS: POTASSIUM 4.1 mmol/L (3.5-5.1)
[2023-10-30 10:22] LABS: CALCIUM 8.9 mg/dL (8.5-10.1)
[2023-10-30 10:23] LABS: ALBUMIN 3.3 g/dl (3.4-5.0)
[2023-10-30 10:26] LABS: CREATININE 0.8 mg/dL (0.55-1.3)
[2023-10-30 10:27] LABS: BASO % 0.6 % (0-2.0); BILIRUBIN,TOTAL 0.3 mg/dL (0.2-1); EOS % 7.3 % (0-4.5); HEMATOCRIT 46.5 % (35.4-49); HEMOGLOBIN 15.5 GM/dL (11.7-16.9); LYMPH % 23.7 % (8-40); MCH 31.3 pg (25.7-33.7); MCHC 33.3 g/dl (32.0-35.9); MEAN CELL VOLUME 93.9 fl (80-96); MEAN PLT VOLUME 8.5 fl (7.5-11.1); MONO % 6.5 % (3.8-10.2); NEUT % 61.9 % (42.8-82.8); PLATELET COUNT 311 10^3/uL (134-434); RBC 4.95 M/mm3 (4.00-5.60); WHITE BLOOD COUNT 8.3 K/mm3 (4.0-10.0)
[2023-10-30 10:28] LABS: TOT PROT 6.8 g/dl (6.4-8.2)
[2023-10-30] MEDS: MELATONIN 5 MG TABLETS PO SCH (22:03)
[2023-10-30] MEDS: THIAMINE HCL 100 MG TABLET (FP) PO SCH (22:03)
[2023-10-31] MEDS ORDERED: chlordiazePOXIDE HCL 10 MG CAPSULE PO ONE (05:00)
[2023-10-31] MEDS ORDERED: diazePAM 5 MG TABLET PO ONE (06:00)
[2023-10-31 06:26] VITALS: RESP 17
[2023-10-31 09:25] VITALS: BP 120/67; PULSE 90; TEMP 98.1
[2023-10-31] MEDS: PRENATAL VITAMINS W/ FOLIC ACID TABLET (FP) PO SCH (10:40)
[2023-10-31] MEDS: amLODIPine BESYLATE 10 MG TABLET (FP) PO SCH (10:40)
== END 2023-10-31 12:57 | disposition home or self-care (01) | DRG 774 ==
LOC: YASAS 17:47 → Y6N 20:41
PROVIDERS: ADMIT Allergy & Immunology; ATTEND Allergy & Immunology
PROC: HZ2ZZZZ Detoxification Services for Substance Abuse Treatment (ICD-10-PCS; principal; 2023-10-27)
DX: F10.230 Alcohol dependence with withdrawal, uncomplicated (principal); F14.20 Cocaine dependence, uncomplicated; Z72.0 Tobacco use; I10 Essential (primary) hypertension
CPT/HCPCS: 0241U-QW; 36415; 80053; 85025; 86780; 87635

== ENCOUNTER 2023-11-25 20:15 | Inpatient (IN) | payer OTHER ==
[2023-11-25 22:18] VITALS: BMI 21.1
[2023-11-25] MEDS ORDERED: diazePAM 5 MG TABLET PO PRN (22:27)
[2023-11-25] MEDS ORDERED: hydrOXYzine PAMOATE 25 MG CAPSULE (FP) PO PRN (22:28)
[2023-11-25] MEDS ORDERED: ONDANSETRON *ODT* 4 MG TABLET SL PRN (22:28)
[2023-11-25] MEDS ORDERED: BENZOCAINE/MENTHOL (CHLORASEPTIC ) LOZENGE MM PRN (22:28)
[2023-11-25] MEDS ORDERED: BISMUTH SUBSALICYLATE 524 MG/30 ML PO PRN (22:28)
[2023-11-25] MEDS ORDERED: IBUPROFEN 600 MG TABLET (FP) PO PRN (22:28)
[2023-11-25] MEDS ORDERED: P-EPHED 60MG/TRIPROLIDI 2.5MG TABLET PO PRN (22:28)
[2023-11-25] MEDS ORDERED: ACETAMINOPHEN 325 MG TABLET (FP) PO PRN (22:28)
[2023-11-25] MEDS ORDERED: BENZONATATE 200 MG CAPSULE PO PRN (22:28)
[2023-11-25] MEDS ORDERED: POLYETHYLENE GLYCOL (HEALTHYLAX) 3350 17 GM PACKET PO PRN (22:28)
[2023-11-25] MEDS ORDERED: IBUPROFEN 400 MG TABLET (FP) PO PRN (22:28)
[2023-11-25] MEDS ORDERED: MAG HYDROX/AL HYDROX/SIMETH 30 ML UNIT-DOSE CUP PO PRN (22:28)
[2023-11-25] MEDS ORDERED: guaiFENesin 600 MG TABLET.ER (FP) PO PRN (22:28)
[2023-11-25] MEDS ORDERED: DICYCLOMINE HCL 10 MG CAPSULE PO PRN (22:28)
[2023-11-25] MEDS ORDERED: DOCUSATE SODIUM 100 MG CAPSULE (FP) PO PRN (22:28)
[2023-11-25] MEDS ORDERED: LOPERAMIDE HCL 2 MG CAPSULE PO PRN (22:28)
[2023-11-25] MEDS ORDERED: MAGNESIUM HYDROX 2400MG/30ML ORAL SUSPENSION 30 ML CUP PO PRN (22:28)
[2023-11-25] MEDS ORDERED: NICOTINE POLACRILEX 2 MG GUM BUC PRN (22:28)
[2023-11-25] MEDS ORDERED: AMMONIUM LACTATE 12% LOTION 225 GM BOTTLE TP PRN (22:28)
[2023-11-26] MEDS ORDERED: diazePAM 5 MG TABLET ONE (00:56)
[2023-11-26] MEDS: diazePAM 5 MG TABLET PO SCH (01:00)
[2023-11-26] MEDS: METHOCARBAMOL 500 MG TABLET PO PRN (05:17)
[2023-11-26] MEDS: PRENATAL VITAMINS W/ FOLIC ACID TABLET (FP) PO SCH (10:48)
[2023-11-26] MEDS: amLODIPine BESYLATE 5 MG TABLET (FP) PO SCH (10:48)
[2023-11-26 11:52] LABS: POTASSIUM 3.7 mmol/L (3.5-5.1)
[2023-11-26 11:53] LABS: HEMATOCRIT 41.2 % (35.4-49); MCH 31.8 pg (25.7-33.7); MEAN CELL VOLUME 93.6 fl (80-96); MEAN PLT VOLUME 8.5 fl (7.5-11.1); PLATELET COUNT 314 10^3/uL (134-434); WHITE BLOOD COUNT 8.6 K/mm3 (4.0-10.0)
[2023-11-26 12:00] LABS: ALBUMIN 3.1 g/dl (3.4-5.0); BLOOD UREA NITROGEN 7.8 mg/dL (7-18); CALCIUM 8.7 mg/dL (8.5-10.1)
[2023-11-26 12:03] LABS: CREATININE 0.9 mg/dL (0.55-1.3)
[2023-11-26 12:04] LABS: BILIRUBIN,TOTAL 0.6 mg/dL (0.2-1)
[2023-11-26 12:05] LABS: TOT PROT 5.9 g/dl (6.4-8.2)
[2023-11-26] MEDS: cloNIDine HCL 0.1 MG TABLET PO ONE (17:41)
[2023-11-26] MEDS: THIAMINE HCL 100 MG TABLET (FP) PO SCH (22:25)
[2023-11-26] MEDS: MELATONIN 5 MG TABLETS PO SCH (22:25)
[2023-11-27] MEDS: diazePAM 5 MG TABLET PO SCH (05:19)
[2023-11-27] MEDS: OLANZapine 5 MG TABLET PO SCH (22:25)
[2023-11-28] MEDS: diazePAM 5 MG TABLET PO SCH (05:49)
[2023-11-29 05:59] VITALS: RESP 18
[2023-11-29] MEDS: diazePAM 5 MG TABLET PO ONE (06:03)
[2023-11-29 09:29] VITALS: BP 143/81; PULSE 89; TEMP 97.5
== END 2023-11-29 09:35 | disposition home or self-care (01) | DRG 774 ==
LOC: YASAS 20:15 → Y6N 11-26 01:51
PROVIDERS: ADMIT Allergy & Immunology; ATTEND Surgery
PROC: HZ2ZZZZ Detoxification Services for Substance Abuse Treatment (ICD-10-PCS; principal; 2023-11-26)
DX: F10.230 Alcohol dependence with withdrawal, uncomplicated (principal); F14.20 Cocaine dependence, uncomplicated; F17.210 Nicotine dependence, cigarettes, uncomplicated; F25.9 Schizoaffective disorder, unspecified; I10 Essential (primary) hypertension; Z86.59 Personal history of other mental and behavioral disorders; Z86.19 Personal history of other infectious and parasitic diseases; Z87.828 Personal history of other (healed) physical injury and trauma; Z59.00 Homelessness unspecified; Z56.0 Unemployment, unspecified
CPT/HCPCS: 36415; 80053; 80305; 85027; 86780; 87635

== ENCOUNTER 2024-01-26 12:52 | Inpatient (IN) | payer OTHER ==
[2024-01-26 14:22] VITALS: BMI 21.2
[2024-01-26] MEDS ORDERED: POLYETHYLENE GLYCOL (HEALTHYLAX) 3350 17 GM PACKET PO PRN (16:13)
[2024-01-26] MEDS ORDERED: ACETAMINOPHEN 325 MG TABLET (FP) PO PRN (16:13)
[2024-01-26] MEDS ORDERED: BISMUTH SUBSALICYLATE 524 MG/30 ML PO PRN (16:13)
[2024-01-26] MEDS ORDERED: DICYCLOMINE HCL 10 MG CAPSULE PO PRN (16:13)
[2024-01-26] MEDS ORDERED: IBUPROFEN 400 MG TABLET (FP) PO PRN (16:13)
[2024-01-26] MEDS ORDERED: ONDANSETRON *ODT* 4 MG TABLET SL PRN (16:13)
[2024-01-26] MEDS ORDERED: LOPERAMIDE HCL 2 MG CAPSULE PO PRN (16:13)
[2024-01-26] MEDS ORDERED: NALOXONE HCL 0.4 MG/ML VIAL IM PRN (16:13)
[2024-01-26] MEDS ORDERED: hydrOXYzine PAMOATE 25 MG CAPSULE (FP) PO PRN (16:13)
[2024-01-26] MEDS ORDERED: MAG HYDROX/AL HYDROX/SIMETH 30 ML UNIT-DOSE CUP PO PRN (16:13)
[2024-01-26] MEDS ORDERED: MAGNESIUM HYDROX 2400MG/30ML ORAL SUSPENSION 30 ML CUP PO PRN (16:13)
[2024-01-26] MEDS ORDERED: BENZOCAINE/MENTHOL (CHLORASEPTIC ) LOZENGE MM PRN (16:13)
[2024-01-26] MEDS ORDERED: NALOXONE HCL (KLOXXADO) 8 MG SPRAY NS PRN (16:13)
[2024-01-26] MEDS ORDERED: diazePAM 5 MG TABLET ONE (18:08)
[2024-01-26] MEDS: diazePAM 5 MG TABLET PO SCH (18:12)
[2024-01-26] MEDS: NICOTINE 7 MG/24 HOURS TOPICAL PATCH TD SCH (18:47)
[2024-01-26] MEDS: PRENATAL VITAMINS W/ FOLIC ACID TABLET (FP) PO SCH (18:47)
[2024-01-26] MEDS: THIAMINE HCL 100 MG TABLET (FP) PO SCH (22:27)
[2024-01-26] MEDS: guaiFENesin 600 MG TABLET.ER (FP) PO PRN (22:27)
[2024-01-26] MEDS: MELATONIN 5 MG TABLETS PO SCH (22:27)
[2024-01-27] MEDS: guaiFENesin 200 MG/10 ML 10 ML UNIT-DOSE CUPS PO PRN (00:14)
[2024-01-27] MEDS: BENZONATATE 200 MG CAPSULE PO PRN (03:10)
[2024-01-27] MEDS: cloNIDine HCL 0.1 MG TABLET PO ONE (07:55)
[2024-01-27] MEDS: amLODIPine BESYLATE 10 MG TABLET (FP) PO SCH (11:00)
[2024-01-27] MEDS: OLANZapine 5 MG TABLET PO SCH (22:45)
[2024-01-27] MEDS: cloNIDine HCL 0.1 MG TABLET PO PRN (22:45)
[2024-01-27] MEDS: METHOCARBAMOL 500 MG TABLET PO PRN (22:45)
[2024-01-28] MEDS: diazePAM 5 MG TABLET PO SCH (05:46)
[2024-01-28] MEDS: diazePAM 5 MG TABLET PO PRN (09:43)
[2024-01-29] MEDS: diazePAM 5 MG TABLET PO SCH (06:21)
[2024-01-29] MEDS: IBUPROFEN 600 MG TABLET (FP) PO PRN (22:50)
[2024-01-30 06:26] VITALS: RESP 16
[2024-01-30] MEDS: diazePAM 5 MG TABLET PO ONE (06:33)
[2024-01-30 08:52] VITALS: BP 136/78; PULSE 89; TEMP 97.1
== END 2024-01-30 12:45 | disposition other institution (70) | DRG 775 ==
LOC: YASAS 12:52 → Y3N 17:37
PROVIDERS: ADMIT Allergy & Immunology; ATTEND Surgery
PROC: HZ2ZZZZ Detoxification Services for Substance Abuse Treatment (ICD-10-PCS; principal; 2024-01-26)
DX: F10.230 Alcohol dependence with withdrawal, uncomplicated (principal); F17.210 Nicotine dependence, cigarettes, uncomplicated; F25.9 Schizoaffective disorder, unspecified; F31.9 Bipolar disorder, unspecified; F41.9 Anxiety disorder, unspecified; I10 Essential (primary) hypertension; Z56.0 Unemployment, unspecified; Z59.00 Homelessness unspecified
CPT/HCPCS: 0241U-QW; 71046-TC-FY; 93005; 93010